=== PATIENT | male | born 1950 | race Caucasian/White ===

== ENCOUNTER 2019-11-10 12:24 | Inpatient (IN) | payer MEDICARE, SELFPAY ==
--- NOTE | ~2019-11-10 | CT_ITS ---
EXAMINATION: CT abdomen pelvis w con DATE: 11/10/2019 14:04 INDICATION: Colovesical fistula. TECHNIQUE: Computed tomography (CT) of the abdomen and pelvis was performed with 100 mL Omnipaque 350 intravenous contrast. Automated exposure control and iterative reconstruction technique were employe d. The dose-length product was 643.00 mGy-cm. COMPARISON: None. FINDINGS: The visualized portions of the lung bases demonstrate mild atelectasis. No pleural effusion . The heart size is normal. There are coronary artery calcifications. No pericardial effusion. The li bing demonstrates focal fat adjacent to the falciform ligament. The gallbladder, spleen, pancreas, and adrenal glands are normal. There are cysts in the kidneys measuring up to 10 mm on the right. The pr ostate is moderately enlarged. There is wall thickening of the sigmoid colon with a fistula to the bl adder. There is gas along the fistula and in the bladder lumen. There are no dilated loops of bowel. The appendix is normal. There is calcified atherosclerosis of the aorta and many of the other arterie s. No significant stenosis of the renal arteries, celiac axis, or superior mesenteric artery. There a re no pathologically enlarged lymph nodes. There is no free intraperitoneal fluid. There is severe marco mbar spondylosis. IMPRESSION: 1. Colovesical fistula, which may be secondary to chronic sigmoid diverticulitis or less likely sigmo id malignancy. Reviewed, dictated and finalized at location A. IMPRESSION: 1. Colovesical fistula, which may be secondary to chronic sigmoid diverticuliti s or less likely sigmoid malignancy.
[2019-11-10 12:46] VITALS: BP 139/96; PULSE 116; RESP 24; TEMP 36.6; O2SAT 100
--- NOTE | 2019-11-10 12:46 | ECG_ITS ---
Measurements Intervals [place] Rate: 113 P: 99 CT: 112 QRS: 16 QRSD: 89 T: 46 QT: 346 QTc: 475 Interpretive Statements SINUS TACHYCARDIA WITH SHORT CT INTERVAL ANTEROSEPTAL INFARCT, AGE INDETERMINATE BORDERLINE ST-T WAVE ABNORMALITY- INFERIOR LEADS BASELINE ARTIFACT- I, II, III, AVR, AVL, AVF ABNORMAL ECG Electronically Signed On 11-10-2019 13:21:17 CDT by Dewayne Tineo D.O.
[2019-11-10 13:22] LABS: Basophils Percent Auto 0.3 % (0.2-1.2); Eosinophils Absolute Auto 0.1 K/mm3 (0-0.3); Eosinophils Percent Auto 0.9 % (0-4.4); Hematocrit 39.8 % (42.0-52.0); Hemoglobin 12.8 g/dL (14.0-18.0); Immature Granulocyte Absolute 0.02 K/mm3 (0.00-0.031); Immature Granulocyte Percent A 0.3 % (0-0.5); Lymphocytes Absolute Auto 2.48 K/mm3 (0.9-3.2); Lymphocytes Percent Auto 33.1 % (18.3-44.2); Mean Corpuscular HGB Conc 32.2 g/dl (32-36); Mean Corpuscular Hemoglobin 25.5 pg (26-34); Mean Corpuscular Volume 79.3 fl (80-100); Mean Platelet Volume 9.2 fl (7.4-10.4); Monocytes Absolute Auto 0.8 K/mm3 (0.1-0.6); Monocytes Percent Auto 10.7 % (2.6-8.5); Neutrophils Absolute Auto 4.1 K/mm3 (1.3-6.7); Neutrophils Percent Auto 54.7 % (45.5-73.1); Platelet Count Result 474 k/mm3 (150-375); Red Blood Count 5.02 M/mm3 (4.6-6.20); Red Cell Distribution Width 15.4 % (11.5-14.5); White Blood Count 7.5 K/mm3 (4.5-10.0)
[2019-11-10] MEDS: SODIUM CHLORIDE 0.9% IV 1,000 ML 999 ML IV CONT (13:22)
--- NOTE | 2019-11-10 13:28 | PC.NURSE ---
Pt to CT scan via stretcher on tele monitor.
[2019-11-10 13:37] LABS: Lactic Acid Reflex 2.1 mmol/L (0.7-2.1)
[2019-11-10 13:38] LABS: Alanine Aminotransferase 20 U/L (4-50); Albumin Level 3.7 g/dL (3.5-5.1); Alkaline Phosphatase 106 U/L (38-126); Aspartate Amino Transferase 31 U/L (17-59); Bilirubin,Total 0.6 mg/dL (0.2-1.3); Blood Urea Nitrogen 13 mg/dL (9-20); Calcium 9.6 mg/dL (8.4-10.2); Carbon Dioxide 23 mmol/L (22-30); Chloride 104 mmol/L (98-107); Estimated CRCL calculation 100 ml/min; Estimated Glomerular Filt Rate > 60; Glucose 107 mg/dL (75-110); Lipase 195 U/L (23-300); Potassium 3.9 mmol/L (3.4-5.0); Sodium 136 mmol/L (137-145)
--- NOTE | 2019-11-10 13:43 | PC.NURSE ---
Pt states he is unable to provide urine sample at this time, fluids infusing, will try after CT scan - urinal at bedside.
[2019-11-10 13:44] VITALS: BP 133/79; PULSE 104; RESP 20; O2SAT 97
[2019-11-10 14:29] VITALS: BP 136/78; PULSE 100; RESP 20; O2SAT 97
--- NOTE | 2019-11-10 14:39 | ED.GENADULT ---
HPI - General Adult General Chief complaint: GI Bleed Stated complaint: urinating stool and blood History of Present Illness HPI narrative: Patient is a 69-year-old male who presents to the ER with concerns of possible colovesicular fistula. Patient was seen by his PCP last week because on 11/06/2019 he began urinating stool. He was placed on ciprofloxacin. Patient has continued to grow more weak and has had some lower abdominal discomfort. He passes air when he urinates as well. Family reports that he has passed some bright red blood as well as dark black stool over the last couple days markedly worse today. Family also reports 25 pound weight loss. No fever but patient is quite fatigued and appears very dry. Has also started having chills. Related Data Home Medications Medication Instructions Recorded Confirmed celecoxib 200 mg capsule 200 mg PO BID 08/29/19 11/06/19 escitalopram oxalate 20 mg tablet 10 mg PO DAILY 08/29/19 11/10/19 ezetimibe 10 mg tablet 10 mg PO DAILY 08/29/19 11/10/19 hydrochlorothiazide 12.5 mg capsule 12.5 mg PO DAILY 08/29/19 11/10/19 Allergies Allergy/AdvReac Type Severity Reaction Status Date / Time atorvastatin Allergy Unknown Unknown Verified 11/10/19 12:54 celecoxib Allergy Unknown Unknown Verified 11/10/19 12:54 duloxetine Allergy Unknown Unknown Verified 11/10/19 12:54 lorazepam Allergy Unknown Anxiety Verified 11/10/19 12:54 rosuvastatin Allergy Unknown Unknown Verified 11/10/19 12:54 Review of Systems Review of Systems: All systems reviewed & are unremarkable except as noted in HPI and below Constitutional: Constitutional: Reports chills, Denies fever(s) and Reports weakness ENT: Denies nasal congestion and Denies sore throat Respiratory: Respiratory: Denies cough, Denies dyspnea and Denies wheezing Gastrointestinal: Gastrointestinal: Reports abdominal pain, Denies nausea and Denies vomiting Comments: Bloody stools Genitourinary: Genitourinary: Reports dysuria and Reports urinary frequency Comments: Stool in urine [facility] Past Medical History Medical History (Updated 11/10/19 @ 15:39 by Jimmy Taylor MD) Atherosclerotic heart disease of [place] coronary artery without angina pectoris Decreased libido Degenerative joint disease (DJD) of lumbar spine Essential (primary) hypertension Major depressive disorder, single episode, unspecified Mixed hyperlipidemia Pneumaturia Vitamin D deficiency, unspecified Surgical History Surgical History (Updated 11/10/19 @ 15:36 by Jimmy Taylor MD) Hx of CABG Family History Family History Mother Hypertension Other Family history of coronary artery disease Family history of malignant neoplasm Social History Social History Smoking status: Smoker, status unknown Second hand tobacco smoke exposure: No Alcohol intake: never Gender identity (if verbalized by the patient): Male Exam Narrative: Exam Narrative: GENERAL: ill-appearing, well-nourished, and in no acute distress. HEAD: Normocephalic, atraumatic. ENT: Dry mucous membranes CHEST: Clear to auscultation. No respiratory distress. HEART: Tachycardic and regular. Normal peripheral pulses. ABDOMEN: Soft,mild suprapubic and LLQ discomfort w/o rebound or guarding, nondistended, normal active bowel sounds. EXTREMITIES: Normal range of motion. No edema. SKIN: Warm, dry, no rash. NEURO: Alert and oriented x3. PSYCH: Normal mood and affect. Course Course Emergency Course: General surgery has been consulted. I did discuss case with Dr. Michael with urology who does not feel urology is required at this time but should patient get worse or urologic needs arise they are happy to consult. Admit to hospitalist service. IV Zosyn ordered for UTI Vital Signs Vital signs: Vital Signs Temperature 97.9 F 11/10/19 12:46 Pulse Rate 116 H 11/10/19 12:46 Respi
--- NOTE | 2019-11-10 15:00 | PM.CNGS ---
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 Pt reports these sx have been going on for the last few days. Pt reports lower abd pain and pressure. Pt also c dysuria and dk urine. Pt denies f/c, but reports he has not felt well. Pt reports some blood in the toliet c BMs. Review of Systems Constitutional: Constitutional: Denies anorexia, Denies chills, Reports fatigue, Denies headache(s), Reports lethargy, Denies malaise, Denies poor appetite, Reports weakness, Denies weight gain and Denies weight loss Eyes: Eyes: Denies loss of vision ENT: Denies dysphagia, Denies headache(s), Denies hearing loss and Denies sore throat Cardiovascular: Cardiovascular: Denies chest pain, Denies syncope, Denies irregular heart rhythm, Denies leg edema, Denies palpitations and Denies dyspnea Respiratory: Respiratory: Denies cough and Denies dyspnea Gastrointestinal: Gastrointestinal: Reports abdominal pain, Denies bloating, Denies change in bowel habits, Denies change in stool character, Denies constipation, Denies dysphagia, Denies heartburn, Denies diarrhea, Denies nausea, Denies vomiting and Denies hematemesis Genitourinary: Genitourinary: Reports dysuria, Reports urinary frequency and Reports urinary urgency Musculoskeletal: Musculoskeletal: Denies myalgias, Denies arthralgias and Denies muscle cramps Integumentary/Breasts: Skin/Breast: Denies non-healing lesions and Denies rash Neurologic: Denies syncope, Denies headache(s) and Denies loss of vision Endocrine: Endocrine: Denies change in body appearance and Denies fatigue Hematologic/Lymphatic: Hematologic/Lymphatic: Denies easy bleeding, Denies easy bruising and Denies lymphadenopathy [facility] Past Medical History Medical History Atherosclerotic heart disease of [place] coronary artery without angina pectoris Decreased libido Degenerative joint disease (DJD) of lumbar spine Essential (primary) hypertension Major depressive disorder, single episode, unspecified Mixed hyperlipidemia Pneumaturia Vitamin D deficiency, unspecified Family History Family History Mother Hypertension Other Family history of coronary artery disease Family history of malignant neoplasm Social History Social History Smoking status: Smoker, status unknown Second hand tobacco smoke exposure: No Alcohol intake: never Gender identity (if verbalized by the patient): Male Meds Home Medications and Allergies Home Medications Medication Instructions Recorded Confirmed Type metoprolol succinate 50 mg 50 mg PO DAILY #90 tablet 07/03/19 11/10/19 Rx tablet,extended release 24 hr celecoxib 200 mg capsule 200 mg PO BID 08/29/19 11/06/19 History escitalopram oxalate 20 mg tablet 10 mg PO DAILY 08/29/19 11/10/19 History ezetimibe 10 mg tablet 10 mg PO DAILY 08/29/19 11/10/19 History hydrochlorothiazide 12.5 mg capsule 12.5 mg PO DAILY 08/29/19 11/10/19 History amitriptyline 25 mg tablet 25 mg PO ONCE #30 tablet 10/10/19 11/10/19 Rx simvastatin 20 mg tablet 20 mg PO DAILY #90 tablet 10/10/19 11/10/19 Rx hydrocodone 10 mg-acetaminophen 1 tablet PO Q6H PRN #90 tablet 10/29/19 04
[2019-11-10 15:05] LABS: Add Urine Microscopic? YES; Amorphous Sediment Urine Few; Appearance Urine Turbid (Clear); Bacteria Urine 1+ /hpf; Bilirubin Urine 1+ (Negative); Blood Urine 3+ (Negative); Color Urine Yellow (Yellow); Glucose Urine UA Negative (Negative); Ketones Urine 1+ mg/dL (Negative); Leukocyte Esterase Ur 2+ LEU/UL (Negative); Mucus Urine Heavy /lpf; Nitrate Urine Negative (Negative); Protein Urine 3+ mg/dL (Negative); RBC Urine 51-75 /hpf (0-2); WBC Clumps Urine Present /HPF; WBC Urine >75 /hpf
[2019-11-10 15:06] LABS: Specific Grav Ur 1.043 (1.001-1.035)
[2019-11-10] MEDS: SODIUM CHLORIDE 0.9% IV 1,000 ML 125 ML IV CONT (15:34)
--- NOTE | 2019-11-10 16:14 | PC.NURSE ---
This patient, Main Alfonso, was admitted to [facility] Surg Room 302-01. Patient/family oriented to hospital policies and general routines including ID bracelet, bed and alarms, visiting hours, pain management, procedures, bathroom and other care routines, personal items, smoking policy, room service/diet, and visiting hours. Valuables list has been completed. Information on how to activate the Rapid Response Team has been discussed. Patient/Family are encouraged to report perceived risks to care and to ask questions if they do not understand what they are told or what they should do.
[2019-11-10 16:15] VITALS: BP 135/72; PULSE 102; RESP 18; TEMP 36.7; O2SAT 99
[2019-11-10 16:21] LABS: Reflex Lactic Acid Yes or No Add Lactic
[2019-11-10 17:02] LABS: Lactic Acid 1.1 mmol/L (0.7-2.1)
[2019-11-10 17:21] VITALS: BMI 30.4
--- NOTE | 2019-11-10 17:26 | PCDIET ---
Nutrition Assessment Complete: Inadequate oral intake R/T reduced appetite and diverticulitis as evidence by wt loss Total intake will meet estimated kcal and protein needs Goal:New goal Pt current nutrition is heart healthy. Nutrition recommendation: change to NPO for bowel rest Last recorded weight is 99 kg (recommend daily weights during bowel rest) Additional Notes: Agree with bowel rest. If pt will be NPO greater than 5 days, recommend starting PPN 4.25/5 with lipids at 60ml/hr day one and advancing to goal of 120ml/hr day two if electrolytes normals to provide 1479kcals and 122g protein daily. Recommend daily wt and ADAT to low fiber when medically appropriate. Following diet, intake, weight, labs every three days
[2019-11-10 21:56] VITALS: BP 141/76; PULSE 96; RESP 18; TEMP 37.2; O2SAT 94
--- NOTE | 2019-11-10 22:24 | PM.IMHP ---
H&P: HPI History of Present Illness Chief complaint: colovesicular fistula/ uti Narrative: Main Alfonso is a 69 year old male who was not aware that he had any diverticulitis or any diverticulosis. Patient stated he has never had a colonoscopy. The patient saw his primary care doctor Dr. Rubin Snyder on 11/06/2019 because he was urinating stool. He was placed on ciprofloxacin. The patient has gotten more fatigued and developed a fever. He had some lower abdominal discomfort. The patient has been passing air whenever he urinates. He also passed some red blood as will start stool the last couple days. He has had a recent 25 lb weight loss. He is also having some chills. Patient had abdominal pelvis CT which was read as colovesical fistula, which may be secondary to chronic sigmoid diverticulitis or least likely sigmoid malignancy. Surgical consult was placed. Urology initially was consulted but stated that theywill consult if it was necessary. The patient has a complicated UTI and is septic therefore I reconsulted Urology. The patient was started on Zosyn. He was given IV fluids in the emergency room. His H&H is noted to be 12.8 and 39.8. Urine had 2+ leukocyte esterase. WBCs greater than 75. Urine rbc's 51-75. 1+ bacteria. Date of service 11/10/2019 Review of Systems Review of Systems: All systems reviewed & are unremarkable except as noted in HPI and below Constitutional: Constitutional: Reports as per HPI and Reports no additional constitutional complaints Eyes: Eyes: Reports as per HPI and Reports no additional eye complaints ENT: Reports system reviewed and no additional complaints, except as documented and Reports Normal hearing present Cardiovascular: Cardiovascular: Reports no additional cardiovascular complaints Respiratory: Respiratory: Reports no additional respiratory complaints and Reports no additional respiratory complaints Gastrointestinal: Gastrointestinal: Reports as per HPI and Reports no additional gastrointestinal complaints Musculoskeletal: Musculoskeletal: Reports no additional musculoskeletal complaints Integumentary/Breasts: Skin/Breast: Reports system reviewed and no additional complaints, except as docu and Reports as per HPI Neurologic: Reports system reviewed and no additional complaints, except as documented, Reports as per HPI and Reports Normal hearing present Psychiatric: Psychiatric: Reports no additional psychiatric complaints and Reports as per HPI Endocrine: Endocrine: Reports no additional endocrine complaints Hematologic/Lymphatic: Hematologic/Lymphatic: Reports no additional hematologic/lymphatic complaints Allergic/Immunologic: Allergic/Immunologic: Reports no additional allergic/immunologic complaints PMFSH Past Medical History Medical History (Updated 11/10/19 @ 22:40 by Mila Ballesteros NP) Atherosclerotic heart disease of [place] coronary artery without angina pectoris Decreased libido Degenerative joint disease (DJD) of lumbar spine Essential (primary) hypertension Major depressive disorder, single episode, unspecified Mixed hyperlipidemia Pneumaturia Vitamin D deficiency, unspecified Surgical History Surgical History (Updated 11/10/19 @ 22:31 by Mila Ballesteros NP) Hx of CABG 6 vessel CABG Family History Family History Mother Hypertension Heart disease Other Family history of coronary artery disease Family history of malignant neoplasm Social History Social History (Updated 11/10/19 @ 22:33 by Mila Ballesteros NP) Social History: The patient lives with his who is a durable power workers compensation defense attorney for healthcare. The patient desires to be a full code. 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 Ale is his 's name. Patient currently smokes at least a pack cigarettes a day. He has smoked since the age of 12. No illicit drugs huan
[2019-11-10] MEDS: AMITRIPTYLINE HCL 25 MG TABLET PO (22:40)
[2019-11-11] MEDS: SODIUM CHLORIDE 0.9% IV 1,000 ML 125 ML IV CONT ×3 (01:40→18:21)
[2019-11-11 06:00] VITALS: BP 136/82; PULSE 109; RESP 18; TEMP 36.2; O2SAT 96
[2019-11-11 06:06] LABS: Basophils Percent Auto 0.5 % (0.2-1.2); Eosinophils Absolute Auto 0.3 K/mm3 (0-0.3); Eosinophils Percent Auto 4.3 % (0-4.4); Hematocrit 36.8 % (42.0-52.0); Immature Granulocyte Absolute 0.02 K/mm3 (0.00-0.031); Immature Granulocyte Percent A 0.3 % (0-0.5); Lymphocytes Absolute Auto 2.53 K/mm3 (0.9-3.2); Lymphocytes Percent Auto 34.4 % (18.3-44.2); Mean Corpuscular HGB Conc 32.6 g/dl (32-36); Mean Corpuscular Hemoglobin 25.6 pg (26-34); Mean Corpuscular Volume 78.5 fl (80-100); Mean Platelet Volume 8.9 fl (7.4-10.4); Monocytes Absolute Auto 0.5 K/mm3 (0.1-0.6); Monocytes Percent Auto 7.2 % (2.6-8.5); Neutrophils Absolute Auto 3.9 K/mm3 (1.3-6.7); Neutrophils Percent Auto 53.3 % (45.5-73.1); Platelet Count Result 446 k/mm3 (150-375); Red Blood Count 4.69 M/mm3 (4.6-6.20); Red Cell Distribution Width 15.5 % (11.5-14.5); White Blood Count 7.4 K/mm3 (4.5-10.0)
[2019-11-11 06:20] LABS: Alanine Aminotransferase 17 U/L (4-50); Albumin Level 3.4 g/dL (3.5-5.1); Alkaline Phosphatase 87 U/L (38-126); Aspartate Amino Transferase 31 U/L (17-59); Bilirubin,Total 0.6 mg/dL (0.2-1.3); Blood Urea Nitrogen 12 mg/dL (9-20); Calcium 9.1 mg/dL (8.4-10.2); Carbon Dioxide 22 mmol/L (22-30); Chloride 106 mmol/L (98-107); Estimated CRCL calculation 100 ml/min; Estimated Glomerular Filt Rate > 60; Glucose 109 mg/dL (75-110); Magnesium 1.7 mg/dL (1.6-2.3); Potassium 3.5 mmol/L (3.4-5.0); Sodium 135 mmol/L (137-145)
[2019-11-11] MEDS: CHOLECALCIFEROL 1,000 UNIT TABLET 5000 UNITS PO (09:02)
[2019-11-11] MEDS: ESCITALOPRAM OXALATE 10 MG TABLET PO (09:03)
[2019-11-11] MEDS: EZETIMIBE 10 MG TABLET PO (09:03)
[2019-11-11 09:04] VITALS: PULSE 86
[2019-11-11] MEDS: METOPROLOL SUCCINATE EXT REL 50 MG TABCR PO (09:04)
[2019-11-11] MEDS: SIMVASTATIN 20 MG TABLET PO (09:06)
--- NOTE | 2019-11-11 09:44 | PM.PNGS ---
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 Pt c/o suprapubic pain, pressure geoff c urination. Review of Systems Constitutional: Constitutional: Denies chills and Reports fatigue Cardiovascular: Cardiovascular: Denies chest pain and Denies palpitations Respiratory: Respiratory: Denies dyspnea Gastrointestinal: Gastrointestinal: Reports abdominal pain, Reports bloating, Denies nausea and Denies vomiting Genitourinary: Genitourinary: Reports dysuria Exam Const: General: in distress mild Resp: Auscultation: clear to auscultation bilaterally Cardio: Rate: regular rate Rhythm: regular rhythm GI: Other: S, sl dist, mild TTP suprapubic Objective Data Vital Signs Vital Signs: Vital Signs - 24 hr 11/10/19 12:46 11/10/19 13:44 11/10/19 14:29 Temperature 36.6 C Pulse Rate 116 H 104 H 100 Respiratory Rate 24 H 20 20 Blood Pressure 139/96 H 133/79 136/78 Pulse Oximetry 100 97 97 11/10/19 16:15 11/10/19 21:56 11/11/19 06:00 Temperature 36.7 C 37.2 C 36.2 C L Pulse Rate 102 H 96 109 H Respiratory Rate 18 18 18 Blood Pressure 135/72 141/76 H 136/82 Pulse Oximetry 99 94 96 11/11/19 09:04 Temperature Pulse Rate 86 Respiratory Rate Blood Pressure Pulse Oximetry Intake/Output Intake/Output: Intake & Output 11/08/19 11/09/19 11/10/19 11/11/19 23:59 23:59 23:59 23:59 Intake Total 1540 1420 Output Total 100 Balance 1440 1420 Meds/Results Medications: Active Medications Generic Name Dose Route Start Last Admin Trade Name Freq PRN Reason Stop Dose Admin Hydrocodone Bitart/Acetaminophen 1 tab 11/10/19 21:50 11/11/19 09:11 [place] 10-325 Mg PO 1 tab Q6H PRN Administration Pain Rated 4-6 Ezetimibe 10 mg 11/11/19 09:00 11/11/19 09:03 Zetia PO 10 mg DAILY VAMSI Administration Escitalopram Oxalate 10 mg 11/11/19 09:00 11/11/19 09:03 Lexapro PO 10 mg DAILY VAMSI Administration Acetaminophen 1,000 mg in 100 mls @ 400 mls/hr 11/10/19 15:18 Ofirmev 1,000 Mg Ivpb IVPB 11/11/19 15:19 Q6H PRN Mild Pain (1-3) or Fever Sodium Chloride 1,000 mls @ 125 mls/hr 11/10/19 15:20 11/11/19 01:40 Normal Saline Iv IV CONT 125 mls/hr .Q8H VAMSI Administration Piperacillin/Tazobactam/Dextrose 3.375 gm in 50 mls @ 100 mls/hr 11/10/19 22:00 11/11/19 09:19 Zosyn 3.375 Gm/D5w 50ml Pm IVPB 100 mls/hr Q6H VAMSI Administration Metoprolol Succinate 50 mg 11/11/19 09:00 11/11/19 09:04 Toprol Xl PO 50 mg DAILY VAMSI Administration Morphine Sulfate 4 mg 11/10/19 15:18 Morphine Sulfate Inj IV PUSH Q2H PRN Pain Rated 7-10 Ondansetron HCl 4 mg 11/10/19 15:18 Zofran Inj IV PUSH Q4H PRN Nausea Polyethylene Glycol 17 gm 11/10/19 21:50 Miralax PO DAILY PRN Constipation Simvastatin 20 mg 11/11/19 09:00 11/11/19 09:06 Zocor PO 20 mg DAILY VAMSI Administration Vitamin D 5,000 unit 11/11/19 09:00 11/11/19 09:02 Vitamin D PO 5,000 unit DAILY VAMSI Administration Radiology Results: ITS Impressions Abdomen/Pelvis CT 11/10/19 14:21 IMPRESSION: 1. Colovesical fistula, which may be secondary to chronic sigmoid diverticulitis or less likely sigmoid malignancy. Labs Labs: Laboratory Results - last 24 hr 11/10/19 11/10/19 11/10/19 13:17 13:17 13:17 WBC 7.5 RBC 5.02 Hgb 12.8 L Hct 39.8 L MCV 79.3 L MCH 25.5 L MCHC 32.2 RDW 15.4 H Plt Count
--- NOTE | 2019-11-11 10:04 | PC.NURSE ---
[address] ESCALONA'S OFFICE OF CONSULT. Zunilda DE LA CRUZ RN
--- NOTE | 2019-11-11 10:21 | PM.IMPN ---
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 Patient previously experiencing pneumaturia which he reports has resolved. Endorsing diarrhea. Surgery has been consulted and recommendations are greatly appreciated GI has been consulted by surgery and recommendations are also appreciated Continue IV Zosyn Continue IV Fluids Blood and urine cultures pending (2) Diverticulitis of large intestine with complication: Code(s): K57.32 - Diverticulitis of large intestine without perforation or abscess without bleeding Status: Acute Assessment and Plan: Patient endorsing liquid brown stools every 1 to 1.5 hours. Denies melena or hematochezia. Denies abdominal pain. Afebrile and WBC 7.4. GI consult has been placed and recommendations are greatly appreciated Continue to monitor vitals and labs Continue Zosyn and IV fluids Blood cultures pending (3) Acute UTI: Code(s): N39.0 - Urinary tract infection, site not specified Status: Acute Assessment and Plan: Patient recently started on Cipro for hematuria as an outpatient on 11/06/19. Currently denies gross hematuria or pneumaturia. UA suspicious for UTI. Afebrile and WBC 7.4. No CVA tenderness. Urology has been consulted and recommendations are greatly appreciated. Continue Zosyn Await results of blood culture and urine culture. (4) Ear fullness: Code(s): H93.8X9 - Other specified disorders of ear, unspecified ear Status: Acute Assessment and Plan: Patient complains of fullness in ears and decreased hearing. No cerumen impaction noted on exam. This was addressed at recent visit with PCP and encouraged to begin OTC allergy meds which he has not done. Will begin claritin Will begin nasal saline spray (5) Weight loss, non-intentional: Code(s): R63.4 - Abnormal weight loss Status: Acute Assessment and Plan: Patient reports recent unintentional 25 pound weight loss, general malaise, and poor appetite. GI has been consulted and patient will benefit from GI workup to evaluate for potential malignancy given fistula in conjunction with weight loss. Will continue to monitor (6) Essential (primary) hypertension: Code(s): I10 - Essential (primary) hypertension Status: Acute Assessment and Plan: Blood pressure evaluated today and stable at 136/82. Continue metoprolol and HCTZ. (7) Major depressive disorder, single episode, unspecified: Code(s): F32.9 - Major depressive disorder, single episode, unspecified Status: Acute Assessment and Plan: Stable. Continue with Lexapro Subjective Date/time seen: 11/11/19 10:21 Interval history: Date of service: 11/11/2019 Mr. Alfonso is seen today and reports he is feeling okay. He tells me his most bothersome symptom at this time is a sensation of ear fullness which has been ongoing for some time. He tells me he is urinating without difficulty a clear, yellow urine. He denies hematuria, pneumaturia, or fecaluria. He is having a brown liquid stool approximately every 1 to 1.5 hours. He denies abdominal pain, distention, or bloating. He denies fever, chills, nausea, or vomiting. He is eating clear liquids and reports he is tolerating well. He denies headache, dizziness, lightheadedness, bleeding, bruising. He denies chest pain, shortness of breath, cough, or orthopnea. He does tell me he has lost approximately 25 pounds in 1-2 months and has been feeling run down and unwell for months and endorsed overall poor appetite. He tells me he is having a hard time understanding what is going on and he is anxious to get back home. We had a long discussion and I dana a picture for him which seem
--- NOTE | 2019-11-11 11:44 | WPDGICN ---
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 He is already on iv zosyn but also need to proceed with colonoscopy to assess, will be gentle (another differential is diverticulitis)- no perforation, no abscess (2) Diverticulitis of large intestine with complication: Code(s): K57.32 - Diverticulitis of large intestine without perforation or abscess without bleeding Status: Acute Assessment and Plan: on antibiotics, surgery on board (3) Pneumaturia: Code(s): R39.89 - Other symptoms and signs involving the genitourinary system Status: Acute Assessment and Plan: consult urology (4) Weight loss, non-intentional: Code(s): R63.4 - Abnormal weight loss Status: Acute Assessment and Plan: colonoscopy to rule out malignancy (5) Essential (primary) hypertension: Code(s): I10 - Essential (primary) hypertension Status: Acute GI Consult Note Consult date/time: 11/11/19 11:44 Reason for consult: colovesiculal fistula HPI: Main Alfonso is a 69 year old male here with new onset of hematuria last , he went to see his doctor and given ciprofloxacin and refer to urology. Also noted discomfort in lower abdomen with more fatigue but denies fever. Then he has been passing air whenever he urinates and day of admission also blood in stools. Noted also 25 lb weight loss last 6 weeks which was unintentional. He finally had abdominal pelvis CT which showed colovesical fistula, which may be secondary to chronic sigmoid diverticulitis or likely sigmoid malignancy. He never had a colonoscopy, no family history of colon cancer. He is evaluated by surgery, on iv antibiotics Review of Systems Constitutional: Constitutional: Reports fatigue Eyes: Eyes: Denies blurry vision ENT: Reports Normal hearing present Cardiovascular: Cardiovascular: Denies chest pain Respiratory: Respiratory: Denies dyspnea on exertion Gastrointestinal: Gastrointestinal: Reports abdominal pain Genitourinary: Genitourinary: Reports hematuria, Reports urinary hesitancy and Reports urinary urgency Musculoskeletal: Musculoskeletal: Denies neck pain Integumentary/Breasts: Skin/Breast: Denies pruritus Neurologic: Denies confusion Psychiatric: Psychiatric: Denies depression Hematologic/Lymphatic: Hematologic/Lymphatic: Denies lymphadenopathy Allergic/Immunologic: Allergic/Immunologic: Denies urticaria PMFSH Past Medical History Medical History (Updated 11/11/19 @ 10:44 by Concepción Hernandez PA-C) Atherosclerotic heart disease of [place] coronary artery without angina pectoris Decreased libido Degenerative joint disease (DJD) of lumbar spine Essential (primary) hypertension Major depressive disorder, single episode, unspecified Mixed hyperlipidemia Pneumaturia Vitamin D deficiency, unspecified Surgical History Surgical History (Updated 11/10/19 @ 22:31 by Mila Ballesteros NP) Hx of CABG 6 vessel CABG Family History Family History Mother Hypertension Heart disease Other Family history of coronary artery disease Family history of malignant neoplasm Social History Social History (Updated 11/10/19 @ 22:33 by Mila Ballesteros NP) Social History: The patient lives with his who is a durable power admissions evaluator for healthcare. The patient desires to be a full code. 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 Ale is his 's name. Patient currently smokes at least a pack cigarettes a day. He has smoked since the age of 12. No illicit drugs marijuana nor alcohol Smoking packs per day: 1 Smoking cigarettes per day: 20.0 Years smoked: 57 [place]
[2019-11-11] MEDS: hydroCHLOROthiazide 12.5 MG CAPSULE PO (12:44)
[2019-11-11] MEDS: SALINE 0.65% NAS SOLN 44 ML BTL 1 SPRAY NASAL (12:45)
[2019-11-11] MEDS: LORATADINE 5 MG TABLET PO (12:45)
--- NOTE | 2019-11-11 13:36 | WPDURCON ---
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 UTI can be treated based on culture sensitivities. Main will require a cystoscopy and this can be performed as an outpatient prior to his surgical intervention. No other intervention needed from our standpoint. We can be made available for either ureteral stent placements or for operative intervention if required. Urology Consult Note HPI Date Seen: 11/11/19 Time Seen: 13:36 Requesting Physician: Concepción Hernandez PA-C Primary Care Provider: Rubin Pan MD Consult Narrative Reason for consult: Colovesical fistula Narrative: Main Alfonso is a 69 year old male who was admitted with fever as well as symptoms of a colovesical fistula with hematuria as well as pneumaturia which developed this past . He denied any prior voiding symptoms. He did undergo a CT scan which revealed was felt to be a colovesical fistula. There was no evidence of perforation. Both general surgery as well as gastroenterology has seen the patient. Main tells me that he is due to have a colonoscopy tomorrow. CT scan did not reveal any significant urologic findings other than the fistula. He does have what appears to be some benign renal cysts. Review of Systems Review of Systems: All systems reviewed & are unremarkable except as noted in HPI and below PMFSH Past Medical History Medical History Atherosclerotic heart disease of [place] coronary artery without angina pectoris Decreased libido Degenerative joint disease (DJD) of lumbar spine Essential (primary) hypertension Major depressive disorder, single episode, unspecified Mixed hyperlipidemia Pneumaturia Vitamin D deficiency, unspecified Surgical History Surgical History Hx of CABG 6 vessel CABG Family History Family History Mother Hypertension Heart disease Other Family history of coronary artery disease Family history of malignant neoplasm Social History Social History Social History: The patient lives with his who is a durable power criminal defense attorney for healthcare. The patient desires to be a full code. 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 Ale is his 's name. Patient currently smokes at least a pack cigarettes a day. He has smoked since the age of 12. No illicit drugs marijuana nor alcohol Smoking packs per day: 1 Smoking cigarettes per day: 20.0 Years smoked: 57 Smoking pack-years: 57.00 Smoking status: Current every day smoker Second hand tobacco smoke exposure: No Alcohol intake: never Substance use: never Substance use type: does not use Living arrangements: with family Gender identity (if verbalized by the patient): Male Spiritual care concerns: No Agree to blood products: Yes Meds Home Medications and Allergies Home Medications Medication Instructions Recorded Confirmed Type metoprolol succinate 50 mg 50 mg PO DAILY #90 tablet 07/03/19 11/10/19 Rx tablet,extended release 24 hr escitalopram oxalate 20 mg tablet 10 mg PO DAILY 08/29/19 11/10/19 History ezetimibe 10 mg tablet 10 mg PO DAILY 08/29/19 11/10/19 History hydrochlorothiazide 12.5 mg capsule 12.5 mg PO DAILY 08/29/19 11/10/19 History amitriptyline 25 mg tablet 25 mg PO ONCE #30 tablet 10/10/19 11/10/19 Rx simvastatin 20 mg tablet 20 mg PO DAILY #90 tablet 10/10/19 11/10/19 Rx hydrocodone 10 mg-acetaminophen 1 tablet PO Q6H PRN #90 tablet 10/29/19 11/10/19 Rx 325 mg tablet ciproflox
[2019-11-11 14:00] VITALS: BP 139/78; PULSE 88; RESP 18; TEMP 36.7; O2SAT 98
[2019-11-11] MEDS: PEG (High)/E-LYTE SOLN 4,000 ML BTL 4000 ML PO (16:21)
--- NOTE | 2019-11-11 17:20 | WPDANESEPP ---
Anes - Eval Pre Procedure Procedure: Colonoscopy Operation Date: 11/12/19 10:00 Proposed Procedures p Colonoscopy - Berto Black MD Date/Time: 11/11/19 17:20 Surgeon: Lavelle Pre Op Diagnosis: colovesicular fistula/ uti Patient Data Age: 69 Gender: M Height: 5 ft 11 in Weight: 99 kg Last Vital Signs Temp 98.1 F 11/11/19 14:00 Pulse 88 11/11/19 14:00 Resp 18 11/11/19 14:00 BP 139/78 11/11/19 14:00 Pulse Ox 98 11/11/19 14:00 Allergies Allergy/AdvReac Type Severity Reaction Status Date / Time atorvastatin Allergy Unknown Unknown Verified 11/10/19 12:54 celecoxib Allergy Unknown Unknown Verified 11/10/19 12:54 duloxetine Allergy Unknown Unknown Verified 11/10/19 12:54 lorazepam Allergy Unknown Anxiety Verified 11/10/19 12:54 rosuvastatin Allergy Unknown Unknown Verified 11/10/19 12:54 Home Medications Medication Instructions Recorded Confirmed Type metoprolol succinate 50 mg 50 mg PO DAILY #90 tablet 07/03/19 11/10/19 Rx tablet,extended release 24 hr escitalopram oxalate 20 mg tablet 10 mg PO DAILY 08/29/19 11/10/19 History ezetimibe 10 mg tablet 10 mg PO DAILY 08/29/19 11/10/19 History hydrochlorothiazide 12.5 mg capsule 12.5 mg PO DAILY 08/29/19 11/10/19 History amitriptyline 25 mg tablet 25 mg PO ONCE #30 tablet 10/10/19 11/10/19 Rx simvastatin 20 mg tablet 20 mg PO DAILY #90 tablet 10/10/19 11/10/19 Rx hydrocodone 10 mg-acetaminophen 1 tablet PO Q6H PRN #90 tablet 10/29/19 11/10/19 Rx 325 mg tablet ciprofloxacin HCl 500 mg tablet 500 mg PO Q12H 10 Days #20 tablet 11/06/19 11/10/19 Rx aspirin 325 mg PO DAILY 11/10/19 11/10/19 History cholecalciferol (vitamin D3) 125 mcg PO DAILY 11/10/19 11/10/19 History [Vitamin D3] polyethylene glycol 3350 [Miralax] 17 g PO DAILY PRN 11/10/19 11/10/19 History Laboratory Tests 11/11/19 11/11/19 05:15 05:15 WBC 7.4 K/mm3 K/mm3 (4.5-10.0) RBC 4.69 M/mm3 M/mm3 (4.6-6.20) Hgb 12.0 g/dL L g/dL (14.0-18.0) Hct 36.8 % L % (42.0-52.0) MCV 78.5 fl L fl (80-100) MCH 25.6 pg L pg (26-34) MCHC 32.6 g/dl g/dl (32-36) RDW 15.5 % H % (11.5-14.5) Plt Count 446 k/mm3 H k/mm3 (150-375) MPV 8.9 fl fl (7.4-10.4) Immature Gran % (Auto) 0.3 % % (0-0.5) Neut % (Auto) 53.3 % % (45.5-73.1) Lymph % (Auto) 34.4 % % (18.3-44.2) [place] % (Auto) 7.2 % % (2.6-8.5) Eos % (Auto) 4.3 % % (0-4.4) Baso % (Auto) 0.5 % % (0.2-1.2) Lymph # (Auto) 2.53 K/mm3 K/mm3 (0.9-3.2) [place] # (Auto) 0.5 K/mm3 K/mm3 (0.1-0.6) Eos # (Auto) 0.3 K/mm3 K/mm3 (0-0.3) Baso # (Auto) 0.0 K/mm3 K/mm3 (0.0-0.1) Abs Immat Gran (auto) 0.02 K/mm3 K/mm3 (0.00-0.031) Absolute Neuts (auto) 3.9 K/mm3 K/mm3 (1.3-6.7) Absolute Nucleated RBC 0.0 K/mm3 K/mm3 (0.0-0.012) Nucleated RBC % 0.0 % % (0.0-0.2) Sodium 135 mmol/L L mmol/L (137-145) Potassium 3.5 mmol/L mmol/L (3.4-5.0) Chloride 106 mmol/L mmol/L (98-107) Carbon Dioxide 22 mmol/L mmol/L (22-30) BUN 12 mg/dL mg/dL (9-20) Creatinine 0.70 mg/dL mg/dL (0.7-1.3) Estim Creat Clear Calc 100 ml/min ml/min Estimated GFR > 60 (59 - ) Glucose 109 mg/dL mg/dL (75-110) Calcium 9.1 mg/dL mg/dL (8.4-10.2) Magnesium 1.7 mg/dL mg/dL (1.6-2.3) Total Bilirubin 0.6 mg/dL mg/dL (0.2-1.3) AST 31 U/L U/L (17-59) ALT 17 U/L U/L (4-50) Alkaline Phosphatase 87 U/L U/L (38-126) Total Protein 7.0 g/dL g/dL (6.3-8.2) Albumin 3.4 g/dL L g/dL (3.5-5.1) Patient hx anesthesia problems: none Family hx anesthesia problems: none [facility] Past Medical History Medical History Atherosclerotic heart disease of [place] coronary artery without angina pectoris Decre
[2019-11-11] MEDS: BISACODYL 5 MG TABLET EC 20 MG PO (17:50)
[2019-11-11] MEDS: ONDANSETRON INJ 4 MG/2 ML VIAL IV PUSH (18:58)
[2019-11-11 22:00] VITALS: BP 156/80; PULSE 96; RESP 16; TEMP 36.6; O2SAT 93
[2019-11-12] VITALS (8 sets, daily range): BP systolic 123–139; BP diastolic 32–79; PULSE 68–100; RESP 16–26; TEMP 36.4–36.9; O2SAT 95–98
[2019-11-12] MEDS: ONDANSETRON INJ 4 MG/2 ML VIAL IV PUSH (00:10)
--- NOTE | 2019-11-12 00:50 | PC.NURSE ---
Patient's was contacted at 2226 because patient was refusing to drink the rest of the bowel prep. I had already talked with the patient about the importance of finishing the bowel prep and that in order for the physician to perform the procedure his stool needed to be clear but the patient kept refusing. Patient's suggested that if the bowel prep is put into a cup with ice then he may drink it. I went ahead and did what the had asked and the patient stated that he did sip some.
[2019-11-12] MEDS: SODIUM CHLORIDE 0.9% IV 1,000 ML 125 ML IV CONT ×2 (04:01→18:07)
[2019-11-12] MEDS: MAGNESIUM CITRATE 300 ML BTL PO (04:04)
[2019-11-12 06:07] LABS: Basophils Percent Auto 0.5 % (0.2-1.2); Eosinophils Absolute Auto 0.3 K/mm3 (0-0.3); Eosinophils Percent Auto 6.1 % (0-4.4); Hematocrit 34.5 % (42.0-52.0); Hemoglobin 10.9 g/dL (14.0-18.0); Immature Granulocyte Absolute 0.01 K/mm3 (0.00-0.031); Immature Granulocyte Percent A 0.2 % (0-0.5); Lymphocytes Percent Auto 37.6 % (18.3-44.2); Mean Corpuscular HGB Conc 31.6 g/dl (32-36); Mean Corpuscular Hemoglobin 25.6 pg (26-34); Mean Corpuscular Volume 81.2 fl (80-100); Monocytes Absolute Auto 0.5 K/mm3 (0.1-0.6); Monocytes Percent Auto 8.4 % (2.6-8.5); Neutrophils Absolute Auto 2.6 K/mm3 (1.3-6.7); Neutrophils Percent Auto 47.2 % (45.5-73.1); Platelet Count Result 415 k/mm3 (150-375); Red Blood Count 4.25 M/mm3 (4.6-6.20); Red Cell Distribution Width 15.6 % (11.5-14.5); White Blood Count 5.6 K/mm3 (4.5-10.0)
[2019-11-12 06:16] LABS: Alanine Aminotransferase 19 U/L (4-50); Albumin Level 3.3 g/dL (3.5-5.1); Alkaline Phosphatase 73 U/L (38-126); Aspartate Amino Transferase 33 U/L (17-59); Bilirubin,Total 0.4 mg/dL (0.2-1.3); Blood Urea Nitrogen 8 mg/dL (9-20); Calcium 8.7 mg/dL (8.4-10.2); Carbon Dioxide 22 mmol/L (22-30); Chloride 108 mmol/L (98-107); Estimated CRCL calculation 100 ml/min; Estimated Glomerular Filt Rate > 60; Glucose 97 mg/dL (75-110); Magnesium 1.8 mg/dL (1.6-2.3); Potassium 3.5 mmol/L (3.4-5.0); Sodium 137 mmol/L (137-145)
[2019-11-12] MEDS: METOPROLOL SUCCINATE EXT REL 50 MG TABCR PO (08:05)
--- NOTE | 2019-11-12 08:50 | PM.IMPN ---
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 Patient previously experiencing pneumaturia which he reports has resolved. Colonoscopy today. Await results General surgery and GI are following the patient and recommendations are greatly appreciated Continue IV Zosyn Continue IV Fluids at decreased rate of 95 ml/hr (2) Diverticulitis of large intestine with complication: Code(s): K57.32 - Diverticulitis of large intestine without perforation or abscess without bleeding Status: Acute Assessment and Plan: No perforation or abscess noted on CT. Patient endorsing liquid brown stools every 1 to 1.5 hours on 11/10. Denies melena or hematochezia. Denies abdominal pain. Afebrile and WBC 5.6. Blood cultures reveal NGTD. Colonoscopy today. Await results Continue NPO diet GI is following patient and recommendations are greatly appreciated Continue to monitor vitals and labs Continue Zosyn and IV fluids Await final blood cultures (3) Acute UTI: Code(s): N39.0 - Urinary tract infection, site not specified Status: Acute Assessment and Plan: Patient recently started on Cipro for hematuria as an outpatient on 11/06/19. Patient is afebrile and WBC 7.4. No CVA tenderness. Urine culture reveals no growth. He denies dysuria. Urology has been consulted and recommend outpatient cystoscopy. (4) Ear fullness: Code(s): H93.8X9 - Other specified disorders of ear, unspecified ear Status: Acute Assessment and Plan: Patient complains of fullness in ears and decreased hearing. TMs pearly ramirez on exam with minimal cerumen in ear canals. This was addressed at recent visit with PCP and encouraged to begin OTC allergy meds which he had not begun. Reports symptomatic improvement today. Continue claritin Continue nasal saline spray (5) Weight loss, non-intentional: Code(s): R63.4 - Abnormal weight loss Status: Acute Assessment and Plan: Patient reports recent unintentional 25 pound weight loss, general malaise, and poor appetite. GI has been consulted and patient will undergo colonoscopy today to assess for malignant etiology. Will continue to monitor Continue NPO diet Will need to begin dietary supplements once diet is resumed (6) Essential (primary) hypertension: Code(s): I10 - Essential (primary) hypertension Status: Acute Assessment and Plan: Blood pressure evaluated today and stable at 138/73. Continue metoprolol and HCTZ. (7) Major depressive disorder, single episode, unspecified: Code(s): F32.9 - Major depressive disorder, single episode, unspecified Status: Acute Assessment and Plan: Stable. He notes he is nervous for colonoscopy results but denies feeling down, depressed, or hopeless. Continue with Lexapro Continue to monitor Subjective Date/time seen: 11/12/19 08:50 Interval history: Date of service: 11/12/19 Mr. Alfonso reports he is feeling about the same today. He will be undergoing colonoscopy today. He endorsed frequent liquid stools due to bowel prep. He denies urinary symptoms and is urinating clear to yellow urine without pneumaturia or gross hematuria. His ear pressure has improved. He is NPO for colonoscopy but continues to endorse decreased appetite and reports he didn't eat yesterday. He tells me he is mildly nervous regarding colonoscopy and subsequent results but he has been in contact with his family which has been reassuring to him. He had a brief episode of nausea last night when drinking bowel prep, but denies vomiting, fever, chills, abdominal pain or cramping. He denies shortness of breath, chest pain, cough, orthopnea, dizziness, lighth
[2019-11-12] MEDS: LACTATED RINGERS 1,000 ML 150 ML IV CONT (09:21)
--- NOTE | 2019-11-12 09:30 | WPDANESEPPF ---
Anes - Initial Pre Proc Eval Procedure: Operation Date: 11/12/19 10:00 Proposed Procedures p Colonoscopy - Berto Black MD Date/Time: 11/12/19 09:30 Surgeon: Concepción Hernandez PA-C Pre Op Diagnosis: colovesicular fistula/ uti Patient Data Age: 69 Gender: M Height: 5 ft 11 in Weight: 99 kg Last Vital Signs Temp 36.9 C 11/12/19 09:15 Pulse 85 11/12/19 09:15 Resp 18 11/12/19 09:15 BP 131/79 11/12/19 09:15 Pulse Ox 95 11/12/19 09:15 Allergies Allergy/AdvReac Type Severity Reaction Status Date / Time atorvastatin Allergy Unknown Unknown Verified 11/12/19 09:15 celecoxib Allergy Unknown Unknown Verified 11/12/19 09:15 duloxetine Allergy Unknown Unknown Verified 11/12/19 09:15 lorazepam Allergy Unknown Anxiety Verified 11/12/19 09:15 rosuvastatin Allergy Unknown Unknown Verified 11/12/19 09:15 Home Medications Medication Instructions Recorded Confirmed Type metoprolol succinate 50 mg 50 mg PO DAILY #90 tablet 07/03/19 11/10/19 Rx tablet,extended release 24 hr escitalopram oxalate 20 mg tablet 10 mg PO DAILY 08/29/19 11/10/19 History ezetimibe 10 mg tablet 10 mg PO DAILY 08/29/19 11/10/19 History hydrochlorothiazide 12.5 mg capsule 12.5 mg PO DAILY 08/29/19 11/10/19 History amitriptyline 25 mg tablet 25 mg PO ONCE #30 tablet 10/10/19 11/10/19 Rx simvastatin 20 mg tablet 20 mg PO DAILY #90 tablet 10/10/19 11/10/19 Rx hydrocodone 10 mg-acetaminophen 1 tablet PO Q6H PRN #90 tablet 10/29/19 11/10/19 Rx 325 mg tablet ciprofloxacin HCl 500 mg tablet 500 mg PO Q12H 10 Days #20 tablet 11/06/19 11/10/19 Rx aspirin 325 mg PO DAILY 11/10/19 11/10/19 History cholecalciferol (vitamin D3) 125 mcg PO DAILY 11/10/19 11/10/19 History [Vitamin D3] polyethylene glycol 3350 [Miralax] 17 g PO DAILY PRN 11/10/19 11/10/19 History Laboratory Tests 11/12/19 11/12/19 05:14 05:14 WBC 5.6 K/mm3 K/mm3 (4.5-10.0) RBC 4.25 M/mm3 L M/mm3 (4.6-6.20) Hgb 10.9 g/dL L g/dL (14.0-18.0) Hct 34.5 % L % (42.0-52.0) MCV 81.2 fl fl (80-100) MCH 25.6 pg L pg (26-34) MCHC 31.6 g/dl L g/dl (32-36) RDW 15.6 % H % (11.5-14.5) Plt Count 415 k/mm3 H k/mm3 (150-375) MPV 9.0 fl fl (7.4-10.4) Immature Gran % (Auto) 0.2 % % (0-0.5) Neut % (Auto) 47.2 % % (45.5-73.1) Lymph % (Auto) 37.6 % % (18.3-44.2) [place] % (Auto) 8.4 % % (2.6-8.5) Eos % (Auto) 6.1 % H % (0-4.4) Baso % (Auto) 0.5 % % (0.2-1.2) Lymph # (Auto) 2.10 K/mm3 K/mm3 (0.9-3.2) [place] # (Auto) 0.5 K/mm3 K/mm3 (0.1-0.6) Eos # (Auto) 0.3 K/mm3 K/mm3 (0-0.3) Baso # (Auto) 0.0 K/mm3 K/mm3 (0.0-0.1) Abs Immat Gran (auto) 0.01 K/mm3 K/mm3 (0.00-0.031) Absolute Neuts (auto) 2.6 K/mm3 K/mm3 (1.3-6.7) Absolute Nucleated RBC 0.0 K/mm3 K/mm3 (0.0-0.012) Nucleated RBC % 0.0 % % (0.0-0.2) Sodium 137 mmol/L mmol/L (137-145) Potassium 3.5 mmol/L mmol/L (3.4-5.0) Chloride 108 mmol/L H mmol/L (98-107) Carbon Dioxide 22 mmol/L mmol/L (22-30) BUN 8 mg/dL L mg/dL (9-20) Creatinine 0.70 mg/dL mg/dL (0.7-1.3) Estim Creat Clear Calc 100 ml/min ml/min Estimated GFR > 60 (59 - ) Glucose 97 mg/dL mg/dL (75-110) Calcium 8.7 mg/dL mg/dL (8.4-10.2) Magnesium 1.8 mg/dL mg/dL (1.6-2.3) Total Bilirubin 0.4 mg/dL mg/dL (0.2-1.3) AST 33 U/L U/L (17-59) ALT 19 U/L U/L (4-50) Alkaline Phosphatase 73 U/L U/L (38-126) Total Protein 7.0 g/dL g/dL (6.3-8.2) Albumin 3.3 g/dL L g/dL (3.5-5.1) Patient hx anesthesia problems: none Family hx anesthesia problems: none PMFSH Past Medical History Medical History Atherosclerotic heart disease of [place] coronary artery without angina
--- NOTE | 2019-11-12 11:10 | PCNFU ---
Nutrition Follow-Up Complete: Inadequate oral intake R/T reduced appetite and diverticulitis as evidence by wt loss Goal: Total intake will meet estimated kcal and protein needs Progressing towards goal, We will continue current goal. Pt current nutrition is NPO. Nutrition recommendation: Advance as tolerated. Last recorded weight is 99 kg. Bowel Motility:7 BM on11/10 reported. Labs Reviewed:BUN 8,AlB 3.3 Meds Noted:Vit D, Zofran, Normal Saline, LR 1000 ml at 150 ml/hr Additional Notes: Spoke with nursing today over telephone due to COVID 19 precautions. Patient currently NPO for colonoscopy today, multiple liquid stools reported. Patient had been on a heart healthy diet with intake reported from 25-100% of meals. Weight loss reported by of 25 ibs in the past 1-2 months. Recommend a diet supplement when diet advances. Monitoring: Diet, intake, weight, labs every three days
--- NOTE | 2019-11-12 11:50 | PM.PNGS ---
Progress Note: A&P Assessment and Plan (1) Diverticulitis of large intestine with complication: Code(s): K57.32 - Diverticulitis of large intestine without perforation or abscess without bleeding Status: Acute Assessment and Plan: cont IV abx, await results of scope today (2) Colovesical fistula: Code(s): N32.1 - Vesicointestinal fistula Status: Acute Assessment and Plan: cont IV abx, appreciate urology input Subjective Subjective Date/Time Seen: 11/12/19 11:50 pt seen while getting colonoscopy, cont to c/o suprapubic tenderness although improved Review of Systems Constitutional: Constitutional: Reports fatigue and Reports weakness Cardiovascular: Cardiovascular: Denies chest pain and Denies palpitations Respiratory: Respiratory: Denies dyspnea Gastrointestinal: Gastrointestinal: Reports abdominal pain, Reports bloating, Denies nausea and Denies vomiting Genitourinary: Genitourinary: Reports dysuria Exam Const: General: no acute distress Resp: Auscultation: clear to auscultation bilaterally Cardio: Rate: regular rate Rhythm: regular rhythm GI: Other: S, sl dist, decreased TTP lower abd Objective Data Vital Signs Vital Signs: Vital Signs - 24 hr 11/11/19 14:00 11/11/19 22:00 11/12/19 06:00 Temperature 36.7 C 36.6 C 36.5 C Pulse Rate 88 96 100 Respiratory Rate 18 16 18 Blood Pressure 139/78 156/80 H 138/73 Pulse Oximetry 98 93 97 11/12/19 09:15 Temperature 36.9 C Pulse Rate 85 Respiratory Rate 18 Blood Pressure 131/79 Pulse Oximetry 95 Intake/Output Intake/Output: Intake & Output 11/09/19 11/10/19 11/11/19 11/12/19 23:59 23:59 23:59 23:59 Intake Total 1540 4310 1437 Output Total 100 Balance 1440 4310 1437 Meds/Results Medications: Active Medications Generic Name Dose Route Start Last Admin Trade Name Freq PRN Reason Stop Dose Admin Hydrocodone Bitart/Acetaminophen 1 tab 11/10/19 21:50 11/11/19 09:11 [place] 10-325 Mg PO 1 tab Q6H PRN Administration Pain Rated 4-6 Ezetimibe 10 mg 11/11/19 09:00 11/11/19 09:03 Zetia PO 10 mg DAILY [facility] Administration Escitalopram Oxalate 10 mg 11/11/19 09:00 11/11/19 09:03 Lexapro PO 10 mg DAILY [facility] Administration Hydrochlorothiazide 12.5 mg 11/11/19 09:00 11/11/19 12:44 Hydrochlorothiazide PO 12.5 mg DAILY [facility] Administration Sodium Chloride 1,000 mls @ 95 mls/hr 11/10/19 15:20 11/12/19 05:38 Normal Saline Iv IV CONT 125 mls/hr .[id number] [facility] Infusion Piperacillin/Tazobactam/Dextrose 3.375 gm in 50 mls @ 100 mls/hr 11/10/19 22:00 11/12/19 04:36 Zosyn 3.375 Gm/D5w 50ml Pm IVPB Infused Q6H [facility] Infusion Lactated Ringer's 1,000 mls @ 150 mls/hr 11/12/19 09:15 11/12/19 11:21 Lr - Lactated Ringers Iv IV CONT 150 mls/hr .[id number] [facility] Infusion Loratadine 5 mg 11/11/19 09:00 11/11/19 12:45 Claritin PO 5 mg QAM [facility] Administration Metoprolol Succinate 50 mg 11/11/19 09:00 11/12/19 08:05 Toprol Xl PO 50 mg DAILY [facility] Administration Morphine Sulfate 4 mg 11/10/19 15:18 Morphine Sulfate Inj IV PUSH Q2H PRN Pain Rated 7-10 Ondansetron HCl 4 mg 11/10/19 15:18 11/12/19 00:10 Zofran Inj IV PUSH 4 mg Q4H PRN Administration Nausea Polyethylene Glycol 17 gm 11/10/19 21:50 Miralax PO DAILY PRN Constipation Simvastatin 20 mg 11/11/19 09:00 11/11/19 09:06 Zocor PO 20 mg DAILY [facility] Administration Sodium Chloride 1 spray 11/11/19 11:00 11/11/19 12:45 Myton Nasal [place] NASAL 1 spray Q6HR PRN Administration Congestion Vitamin D 5,000 unit 11/11/19 09:00 11/11/19 09:02 Vitamin D PO 5,000 unit DAILY [facility] Administration Radiology Results: ITS Impressions Abdomen/Pelvis CT 11/10/19 14:21 IMPRESSION: 1. Colovesical fistula, which may be secondary to chronic sigmoid diverticulitis or less likely sigmoid malignancy. L
[2019-11-12] MEDS: CHOLECALCIFEROL 1,000 UNIT TABLET 5000 UNITS PO (13:10)
[2019-11-12] MEDS: SIMVASTATIN 20 MG TABLET PO (13:11)
[2019-11-12] MEDS: LORATADINE 5 MG TABLET PO (13:11)
[2019-11-12] MEDS: hydroCHLOROthiazide 12.5 MG CAPSULE PO (13:11)
[2019-11-12] MEDS: EZETIMIBE 10 MG TABLET PO (13:11)
[2019-11-12] MEDS: ESCITALOPRAM OXALATE 10 MG TABLET PO (13:11)
--- NOTE | 2019-11-12 18:42 | PC.NURSE ---
Pt has tolerated a full liquid diet this evening with no difficulty. Pt continues to report no pain, and is anxious to return home.
[2019-11-13] MEDS: SODIUM CHLORIDE 0.9% IV 1,000 ML 125 ML IV CONT (04:22)
[2019-11-13 06:00] VITALS: BP 134/67; PULSE 77; RESP 18; TEMP 36.6; O2SAT 93
[2019-11-13 06:00] LABS: Basophils Percent Auto 0.5 % (0.2-1.2); Eosinophils Absolute Auto 0.3 K/mm3 (0-0.3); Eosinophils Percent Auto 5.4 % (0-4.4); Hematocrit 32.9 % (42.0-52.0); Hemoglobin 10.1 g/dL (14.0-18.0); Immature Granulocyte Absolute 0.05 K/mm3 (0.00-0.031); Immature Granulocyte Percent A 0.8 % (0-0.5); Mean Corpuscular HGB Conc 30.7 g/dl (32-36); Mean Corpuscular Volume 81.4 fl (80-100); Monocytes Absolute Auto 0.4 K/mm3 (0.1-0.6); Monocytes Percent Auto 7.3 % (2.6-8.5); Neutrophils Absolute Auto 3.1 K/mm3 (1.3-6.7); Platelet Count Result 388 k/mm3 (150-375); Red Blood Count 4.04 M/mm3 (4.6-6.20); Red Cell Distribution Width 15.4 % (11.5-14.5); White Blood Count 5.9 K/mm3 (4.5-10.0)
[2019-11-13 07:29] LABS: Alanine Aminotransferase 18 U/L (4-50); Albumin Level 2.9 g/dL (3.5-5.1); Alkaline Phosphatase 52 U/L (38-126); Aspartate Amino Transferase 42 U/L (17-59); Bilirubin,Total 0.5 mg/dL (0.2-1.3); Blood Urea Nitrogen 6 mg/dL (9-20); Calcium 8.3 mg/dL (8.4-10.2); Carbon Dioxide 25 mmol/L (22-30); Chloride 108 mmol/L (98-107); Estimated CRCL calculation 115 ml/min; Estimated Glomerular Filt Rate > 60; Glucose 90 mg/dL (75-110); Magnesium 1.8 mg/dL (1.6-2.3); Potassium 3.6 mmol/L (3.4-5.0); Sodium 136 mmol/L (137-145)
[2019-11-13] MEDS: LORATADINE 5 MG TABLET PO (08:49)
[2019-11-13] MEDS: METOPROLOL SUCCINATE EXT REL 50 MG TABCR PO (08:50)
[2019-11-13] MEDS: ESCITALOPRAM OXALATE 10 MG TABLET PO (08:50)
[2019-11-13] MEDS: EZETIMIBE 10 MG TABLET PO (08:50)
[2019-11-13] MEDS: SIMVASTATIN 20 MG TABLET PO (08:50)
[2019-11-13] MEDS: CHOLECALCIFEROL 1,000 UNIT TABLET 5000 UNITS PO (08:50)
[2019-11-13] MEDS: hydroCHLOROthiazide 12.5 MG CAPSULE PO (08:50)
--- NOTE | 2019-11-13 09:13 | PM.PNGS ---
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 Viecnte in 2 wks Subjective Subjective Date/Time Seen: 11/13/19 09:13 Pt feels much better today. Pt reports pressure/pain completely resolved. Pt reports dysuria resolved as well. Pt bryn FLD and reports normal BM this am. Review of Systems Constitutional: Constitutional: Denies chills, Denies fatigue and Denies weakness Cardiovascular: Cardiovascular: Denies chest pain and Denies palpitations Respiratory: Respiratory: Denies dyspnea Gastrointestinal: Gastrointestinal: Denies abdominal pain, Denies bloating, Denies constipation, Denies diarrhea, Denies nausea and Denies vomiting Genitourinary: Genitourinary: Denies dysuria Exam Const: General: no acute distress Resp: Auscultation: clear to auscultation bilaterally Cardio: Rate: regular rate Rhythm: regular rhythm GI: Other: S, sl dist, minimal TTP suprapubic/LLQ Objective Data Vital Signs Vital Signs: Vital Signs - 24 hr 11/12/19 09:15 11/12/19 12:05 11/12/19 12:15 Temperature 36.9 C Pulse Rate 85 83 89 Respiratory Rate 18 25 H 26 H Blood Pressure 131/79 123/62 130/32 L Pulse Oximetry 95 96 96 11/12/19 12:24 11/12/19 12:49 11/12/19 14:00 Temperature 36.7 C 36.4 C Pulse Rate 88 68 88 Respiratory Rate 23 H 16 18 Blood Pressure 139/65 128/60 135/70 Pulse Oximetry 97 97 98 11/12/19 22:00 11/13/19 06:00 Temperature 36.8 C 36.6 C Pulse Rate 75 77 Respiratory Rate 18 18 Blood Pressure 138/69 134/67 Pulse Oximetry 97 93 Intake/Output Intake/Output: Intake & Output 11/10/19 11/11/19 11/12/19 11/13/19 23:59 23:59 23:59 23:59 Intake Total 1540 4310 3350 1300 Output Total 100 Balance 1440 4310 3350 1300 Meds/Results Medications: Active Medications Generic Name Dose Route Start Last Admin Trade Name Freq PRN Reason Stop Dose Admin Hydrocodone Bitart/Acetaminophen 1 tab 11/10/19 21:50 11/11/19 09:11 [place] 10-325 Mg PO 1 tab Q6H PRN Administration Pain Rated 4-6 Ezetimibe 10 mg 11/11/19 09:00 11/13/19 08:50 Zetia PO 10 mg DAILY VAMSI Administration Escitalopram Oxalate 10 mg 11/11/19 09:00 11/13/19 08:50 Lexapro PO 10 mg DAILY VAMSI Administration Hydrochlorothiazide 12.5 mg 11/11/19 09:00 11/13/19 08:50 Hydrochlorothiazide PO 12.5 mg DAILY VAMSI Administration Sodium Chloride 1,000 mls @ 95 mls/hr 11/10/19 15:20 11/13/19 04:22 Normal Saline Iv IV CONT 125 mls/hr .[id number] VAMSI Administration Piperacillin/Tazobactam/Dextrose 3.375 gm in 50 mls @ 100 mls/hr 11/10/19 22:00 11/13/19 04:52 Zosyn 3.375 Gm/D5w 50ml Pm IVPB Infused Q6H VAMSI Infusion Loratadine 5 mg 11/11/19 09:00 11/13/19 08:49 Claritin PO 5 mg QAM VAMSI Administration Metoprolol Succinate 50 mg 11/11/19 09:00 11/13/19 08:50 Toprol Xl PO 50 mg DAILY VAMSI Administration Morphine Sulfate 4 mg 11/10/19 15:18 Morphine Sulfate Inj IV PUSH Q2H PRN Pain Rated 7-10 Ondansetron HCl 4 mg 11/10/19 15:18 11/12/19 00:10 Zofran Inj IV PUSH 4 mg Q4H PRN Administration Nausea Polyethylene Glycol 17 gm 11/10/19 21:50 Miralax PO DAILY PRN Constipation Simvastatin 20 mg 11/11/19 09:00 11/13/19 08:50 Zocor PO 20 mg DAILY VAMSI Administration Sodium Chloride 1 spray 11/11/19 11:00 11/11/19 12:45 [place] Nasal [place] NASAL 1 spray Q6HR PRN Administration Congestion Vitamin D 5,000 unit 11/11/19 09:00 11/13/19 08:50 Vitamin D PO 5,000 unit DAILY VAMSI Administration Radiology Results: ITS Impressions Abdomen/Pelvis CT 11/10/19 14:21 IMPRESSION: 1. Colovesical fistula, which may be secondary to chronic sigmoid diverticulitis or
--- NOTE | 2019-11-13 11:13 | WPDGIPROGNO ---
Progress Note: A&P Additional Plan Patient seen in follow-up for Dr. Black. Patient states he feels much improved today. Had colonoscopy yesterday. Physical exam reveals patient be alert. Lungs are clear. Heart without murmur. Abdomen soft with minimal tenderness. Impression 1. Colovesical fistula. 2. Suspicious colon lesion. Identified at time of colonoscopy yesterday. Final histology pending. Rule out diverticulitis versus carcinoma. Plan is for continued antibiotics to treat the urinary tract infection. Await results of colonoscopic biopsies. Ultimately surgical correction. Cystoscopy has yet to be performed. Subjective Date/time seen: 11/13/19 11:13 Objective Data Vital Signs Vital Signs: Vital Signs - 24 hr 11/12/19 12:05 11/12/19 12:15 11/12/19 12:24 Temperature Pulse Rate 83 89 88 Respiratory Rate 25 H 26 H 23 H Blood Pressure 123/62 130/32 L 139/65 Pulse Oximetry 96 96 97 11/12/19 12:49 11/12/19 14:00 11/12/19 22:00 Temperature 36.7 C 36.4 C 36.8 C Pulse Rate 68 88 75 Respiratory Rate 16 18 18 Blood Pressure 128/60 135/70 138/69 Pulse Oximetry 97 98 97 11/13/19 06:00 Temperature 36.6 C Pulse Rate 77 Respiratory Rate 18 Blood Pressure 134/67 Pulse Oximetry 93 Intake/Output Intake/Output: Intake & Output 11/10/19 11/11/19 11/12/19 11/13/19 23:59 23:59 23:59 23:59 Intake Total 1540 4310 3350 1300 Output Total 100 Balance 1440 4310 3350 1300 Meds/Results Medications: Active Medications Generic Name Dose Route Start Last Admin Trade Name Freq PRN Reason Stop Dose Admin Hydrocodone Bitart/Acetaminophen 1 tab 11/10/19 21:50 11/11/19 09:11 [place] 10-325 Mg PO 1 tab Q6H PRN Administration Pain Rated 4-6 Ezetimibe 10 mg 11/11/19 09:00 11/13/19 08:50 Zetia PO 10 mg DAILY VAMSI Administration Escitalopram Oxalate 10 mg 11/11/19 09:00 11/13/19 08:50 Lexapro PO 10 mg DAILY VAMSI Administration Hydrochlorothiazide 12.5 mg 11/11/19 09:00 11/13/19 08:50 Hydrochlorothiazide PO 12.5 mg DAILY VAMSI Administration Sodium Chloride 1,000 mls @ 95 mls/hr 11/10/19 15:20 11/13/19 04:22 Normal Saline Iv IV CONT 125 mls/hr .[id number] VAMSI Administration Piperacillin/Tazobactam/Dextrose 3.375 gm in 50 mls @ 100 mls/hr 11/10/19 22:00 11/13/19 04:52 Zosyn 3.375 Gm/D5w 50ml Pm IVPB Infused Q6H VAMSI Infusion Loratadine 5 mg 11/11/19 09:00 11/13/19 08:49 Claritin PO 5 mg QAM VAMSI Administration Metoprolol Succinate 50 mg 11/11/19 09:00 11/13/19 08:50 Toprol Xl PO 50 mg DAILY VAMSI Administration Morphine Sulfate 4 mg 11/10/19 15:18 Morphine Sulfate Inj IV PUSH Q2H PRN Pain Rated 7-10 Ondansetron HCl 4 mg 11/10/19 15:18 11/12/19 00:10 Zofran Inj IV PUSH 4 mg Q4H PRN Administration Nausea Polyethylene Glycol 17 gm 11/10/19 21:50 Miralax PO DAILY PRN Constipation Simvastatin 20 mg 11/11/19 09:00 11/13/19 08:50 Zocor PO 20 mg DAILY VAMSI Administration Sodium Chloride 1 spray 11/11/19 11:00 11/11/19 12:45 [place] Nasal [place] NASAL 1 spray Q6HR PRN Administration Congestion Vitamin D 5,000 unit 11/11/19 09:00 11/13/19 08:50 Vitamin D PO 5,000 unit DAILY VAMSI Administration Radiology Results: ITS Impressions Abdomen/Pelvis CT 11/10/19 14:21 IMPRESSION: 1. Colovesical fistula, which may be secondary to chronic sigmoid diverticulitis or less likely sigmoid malignancy. Labs Labs: Laboratory Results - last 24 hr 11/13/19 11/13/19 05:10 05:10 WBC 5.9 RBC 4.04 L Hgb 10.1 L Hct 32.9 L MCV 81.4 MCH 25.0 L MCHC 30.7 L RDW 15.4 H Plt Count 388 H MPV 9.0 Immature Gran % (Auto) 0.8 H Neut % (Auto) 52.0 Lymph % (Auto) 34.0 [place] % (Auto) 7.3 Eos % (Auto) 5.4 H Baso % (Auto) 0.5 Lymph # (Auto) 2.00 [place] # (Auto) 0.4 Eos # (Auto) 0.3 Baso # (Auto) 0.0 Abs
--- NOTE | 2019-11-13 14:46 | PM.DS ---
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 Urology follow up scheduled in 1 week for cystoscopy (4) Ear fullness: Code(s): H93.8X9 - Other specified disorders of ear, unspecified ear Status: Acute Assessment and Plan: Continue claritin (5) Weight loss, non-intentional: Code(s): R63.4 - Abnormal weight loss Status: Acute (6) Essential (primary) hypertension: Code(s): I10 - Essential (primary) hypertension Status: Acute Assessment and Plan: BP 134/67 at time of discharge (7) Major depressive disorder, single episode, unspecified: Code(s): F32.9 - Major depressive disorder, single episode, unspecified Status: Acute DS: Summary Hospital Course Reason for hospitalization: Hematuria and fecaluria Hospital Course: Date of admission: 11/10/19 Date of discharge: 11/13/19 Main Alfonso is a 69 year old male with a PMH significant for CAD, HTN, and HLD who presented to the emergency department on 11/10/19 with complaints of hematuria and fecaluria. He had previously been experiencing pneumaturia and was started on Ciprofloxacin on 11/06/19. At presentation, UA was grossly abnormal and CT a/p revealed colovesical fistula, which may be secondary to chronic diverticulitis or sigmoid malignancy. He was admitted to the hospitalist service on 11/09 and started on IV Zosyn. General surgery, urology, and GI specialists were consulted and followed patient closely. Given patients significant 25 pound non-intentional weight loss, colonoscopy was performed to evaluate for malignancy. Colonoscopy was not able to be completed due to partial colon obstructive lesion which was biopsied with pathology reports pending at time of discharge. Urine culture revealed no growth. Preliminary blood cultures revealed no growth. He also had eustachian tube dysfunction which had been ongoing for several weeks and improved with Claritin and nasal saline which he may continue OTC as outpatient. Patient began feeling much better, urinary symptoms resolved, and he was able to tolerate oral intake. He was anxious for discharge. He will follow up with Dr. Vicente in 2 weeks regarding colovesical fistula which will ultimately require surgical correction. He will follow up with Dr. Little in 1 week on 11/20/19 for cystoscopy. I spoke with Dr. Pan to update him on the patients condition. He will follow up with Dr. Pan in 1-[address] Vicente or Dr. Pan will review pathology results at patients appointment. No GI follow up was recommended at this time. He will continue Ciprofloxacin 250 BID for 10 days. We discussed importance of adhering to antibiotic regimen as well as attending his follow up appointments. He was educated on medications and worrisome signs and symptoms for which to call his doctor or seek medical care. He was discharged home in hemodynamically stable condition on the afternoon of 11/13/2019. Status at Discharge Functional status at discharge: independent ambulation Overall status at discharge: patient is progressing back to baseline Time Spent with Patient Time attestation: Total time spent providing and/or coordinating discharge services:43 minutes Time spent: Greater than 30 minutes Exam Narrative: Exam Narrative: Mr. Alfonso is examined alone today. He is a well nourished 69 year old
== END 2019-11-13 15:09 | disposition home or self-care (01) | DRG 699 ==
LOC: ANHED 15:39 → ANH3MEDSUR 15:51
PROVIDERS: Internal Medicine Gastroenterology; Nurse Practitioner; Physician Assistant; Admitting Provider Internal Medicine; Emergency Provider Emergency Medicine; PCP Family Medicine; Visit Provider Internal Medicine
PROC: 0DJD8ZZ Inspection of Lower Intestinal Tract, Via Natural or Artificial Opening Endoscopic (ICD-10-PCS; CPT 45378; principal; 2019-11-12 10:00)
DX: N32.1 Vesicointestinal fistula (principal); K57.32 Diverticulitis of large intestine without perforation or abscess without bleeding; C18.7 Malignant neoplasm of sigmoid colon; C18.6 Malignant neoplasm of descending colon; N39.0 Urinary tract infection, site not specified; R63.4 Abnormal weight loss; F32.9 Major depressive disorder, single episode, unspecified; I10 Essential (primary) hypertension; I25.10 Atherosclerotic heart disease of native coronary artery without angina pectoris; E78.5 Hyperlipidemia, unspecified; M47.896 Other spondylosis, lumbar region; E55.9 Vitamin D deficiency, unspecified; H93.8X9 Other specified disorders of ear, unspecified ear; E66.9 Obesity, unspecified; Z68.30 Body mass index [BMI] 30.0-30.9, adult; Z95.1 Presence of aortocoronary bypass graft; F17.210 Nicotine dependence, cigarettes, uncomplicated
CPT/HCPCS: 36415; 51701; 74177; 80053; 81001; 83605; 83690; 83735; 85025; 86850; 86900; 86901; 87040; 87086; 88305; 93005; 96361; 96365; 99285; A9270; J2405; J2543; J2704; J7030; J7120; Q9967

== ENCOUNTER 2019-12-19 13:00 | Outpatient (CLI) | payer MEDICARE, SELFPAY ==
--- NOTE | 2019-12-19 14:09 | ECG_ITS ---
Measurements Intervals [place] Rate: 88 P: 102 IN: 146 QRS: 15 QRSD: 88 T: 26 QT: 378 QTc: 458 Interpretive Statements SINUS RHYTHM FREQUENT ATRIAL PREMATURE COMPLEXES ANTEROSEPTAL INFARCT, AGE INDETERMINATE BASELINE ARTIFACT- I, II, III, AVL ABNORMAL ECG Electronically Signed On 12-19-2019 14:40:45 CDT by Dewayne Tineo D.O.
[2019-12-19 14:36] LABS: Basophils Percent Auto 0.6 % (0.2-1.2); Eosinophils Absolute Auto 0.2 K/mm3 (0-0.3); Eosinophils Percent Auto 2.2 % (0-4.4); Hemoglobin 11.6 g/dL (14.0-18.0); Immature Granulocyte Absolute 0.02 K/mm3 (0.00-0.031); Immature Granulocyte Percent A 0.3 % (0-0.5); Lymphocytes Absolute Auto 3.25 K/mm3 (0.9-3.2); Lymphocytes Percent Auto 44.8 % (18.3-44.2); Mean Corpuscular HGB Conc 32.2 g/dl (32-36); Mean Corpuscular Hemoglobin 25.8 pg (26-34); Mean Platelet Volume 8.5 fl (7.4-10.4); Monocytes Absolute Auto 0.8 K/mm3 (0.1-0.6); Neutrophils Percent Auto 41.1 % (45.5-73.1); Platelet Count Result 406 k/mm3 (150-375); Red Cell Distribution Width 16.6 % (11.5-14.5); White Blood Count 7.3 K/mm3 (4.5-10.0)
[2019-12-19 14:39] LABS: Prothrombin Time 13.1 Seconds (11.1-14.7)
[2019-12-19 14:40] LABS: Partial Thromboplastin Time 29.7 SECONDS (22.3-36.8)
[2019-12-19 15:00] LABS: Alanine Aminotransferase 12 U/L (4-50); Albumin Level 3.9 g/dL (3.5-5.1); Alkaline Phosphatase 106 U/L (38-126); Aspartate Amino Transferase 23 U/L (17-59); Bilirubin,Total 0.2 mg/dL (0.2-1.3); Blood Urea Nitrogen 12 mg/dL (9-20); Calcium 9.3 mg/dL (8.4-10.2); Carbon Dioxide 27 mmol/L (22-30); Chloride 102 mmol/L (98-107); Estimated Glomerular Filt Rate > 60; Glucose 88 mg/dL (75-110); Potassium 4.4 mmol/L (3.4-5.0); Sodium 138 mmol/L (137-145)
[2019-12-19 15:30] LABS: Carcinoembryonic Antigen 11.6 ng/mL (0.0-3.0)
== END 2019-12-19 13:01 | disposition home or self-care (01) ==
PROVIDERS: PCP Family Medicine; Visit Provider Surgery
DX: C18.9 Malignant neoplasm of colon, unspecified (principal); N32.1 Vesicointestinal fistula; R94.31 Abnormal electrocardiogram [ECG] [EKG]
CPT/HCPCS: 36415; 80053; 82378; 85025; 85610; 85730; 86850; 86900; 86901; 87077; 87086; 87088; 93005

== ENCOUNTER 2019-12-27 01:22 | Outpatient (CLI) | payer MEDICARE, SELFPAY ==
[2019-12-27 16:42] LABS: SARS-CoV-2 RNA PCR Negative
== END 2019-12-27 01:23 | disposition home or self-care (01) ==
LOC: ANHCOVIDDT 01:23
PROVIDERS: PCP Family Medicine; Visit Provider Surgery
DX: Z01.812 Encounter for preprocedural laboratory examination (principal); Z20.828 Contact with and (suspected) exposure to other viral communicable diseases
CPT/HCPCS: 87635; C9803; U0003

== ENCOUNTER 2019-12-30 15:16 | Inpatient (IN) | payer MEDICARE, SELFPAY ==
[2019-12-19 13:29] VITALS: BMI 29.5
[2019-12-19 14:06] VITALS: BP 123/69; PULSE 85; RESP 18; TEMP 37.1; O2SAT 98
[2019-12-30] VITALS (20 sets, daily range): BP systolic 142–199; BP diastolic 67–112; PULSE 89–104; RESP 10–25; TEMP 36.4–36.9; O2SAT 94–100
--- NOTE | 2019-12-30 00:11 | WPDANESEPP ---
Anes - Eval Pre Procedure Procedure: Operation Date: 12/30/19 07:30 Proposed Procedures p Left Colectomy, Repair Colovesical Fistula - Chase Vicente MD s Cystoscopy, Bilateral External Stent Placement for Abdominal Surgery - George Little MD s Possible Bladder Resection - George Little MD Date/Time: 12/30/19 00:11 Pre Op Diagnosis: descending sigmoid colon CA, colovesical fistula Patient Data Age: 69 Gender: M Height: 5 ft 11 in Weight: 96.1 kg Last Vital Signs Temp 98.8 F 12/19/19 14:06 Pulse 85 12/19/19 14:06 Resp 18 12/19/19 14:06 BP 123/69 12/19/19 14:06 Pulse Ox 98 12/19/19 14:06 Allergies Allergy/AdvReac Type Severity Reaction Status Date / Time atorvastatin Allergy Unknown Dizziness Verified 12/19/19 13:15 celecoxib Allergy Unknown Nausea Verified 12/19/19 13:15 duloxetine Allergy Unknown Nausea Verified 12/19/19 13:15 rosuvastatin Allergy Unknown Dizziness Verified 12/19/19 13:15 Home Medications Medication Instructions Recorded Confirmed Type ezetimibe 10 mg tablet 10 mg PO HS 08/29/19 12/19/19 History hydrochlorothiazide 12.5 mg capsule 12.5 mg PO DAILY 08/29/19 12/19/19 History aspirin 325 mg PO HS 11/10/19 12/19/19 History cholecalciferol (vitamin D3) 125 mcg PO HS 11/10/19 12/19/19 History [Vitamin D3] polyethylene glycol 3350 [Miralax] 17 g PO DAILY PRN 11/10/19 12/19/19 History hydrocodone 10 mg-acetaminophen 1 tablet PO Q6H PRN #90 tablet 12/12/19 12/19/19 Rx 325 mg tablet amitriptyline 25 mg PO HS 12/19/19 12/19/19 History cephalexin [Keflex] 250 mg PO DAILY 12/19/19 12/19/19 History escitalopram oxalate 10 mg PO HS 12/19/19 12/19/19 History metoprolol succinate 50 mg PO HS 12/19/19 12/19/19 History simvastatin 20 mg PO HS 12/19/19 12/19/19 History Patient hx anesthesia problems: none Family hx anesthesia problems: none PMFSH Past Medical History Medical History Atherosclerotic heart disease of [place] coronary artery without 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 colon Chronic, continuous use of opioids hydrocodone x 13 years Colon cancer Colovesical fistula Current tobacco use Decreased libido Degenerative joint disease (DJD) of lumbar spine Diverticulitis of large intestine with complication Essential (primary) hypertension Major depressive disorder, single episode, unspecified Mixed hyperlipidemia Pneumaturia Seasonal allergies Vitamin D deficiency, unspecified Surgical History Surgical History Hx of CABG 6 vessel CABG S/P CABG x 6 Family History Family History Mother Hypertension Heart disease Other Family history of coronary artery disease Family history of malignant neoplasm Social History Social History Social History: The patient lives with his who is a durable power associate attorney for healthcare. The patient desires to be a full code. 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 Ale is his 's name. Patient currently smokes at least a pack cigarettes a day. He has smoked since the age of 12. No illicit drugs marijuana nor alcohol Smoking packs per day: 1 Smoking cigarettes per day: 20.0 Years smoked: 57 Smoking pack-years: 57.00 Smoking status: Current every day smoker Second hand tobacco smoke exposure: No Alcohol intake: never Substance use: never Substance use type: does not use Gender identity (if verbalized by the patient): Male Spiritual care concerns: No Agree to blood products: Yes Exam Day of Procedure 12/30/19 00:11 Patient weight: overweight
[2019-12-30] MEDS: LACTATED RINGERS 1,000 ML 30 ML IV CONT ×2 (06:25→13:10)
--- NOTE | 2019-12-30 06:36 | WPDANESEPPF ---
Anes - Initial Pre Proc Eval Procedure: Operation Date: 12/30/19 07:30 Proposed Procedures p Left Colectomy, Repair Colovesical Fistula - Chase Vicente MD s Cystoscopy, Bilateral External Stent Placement for Abdominal Surgery - George Little MD s Possible Bladder Resection - George Little MD Date/Time: 12/30/19 06:36 Surgeon: Chase Vicente MD Pre Op Diagnosis: descending sigmoid colon CA, colovesical fistula Patient Data Age: 69 Gender: M Height: 1.8 m Weight: 96.1 kg Last Vital Signs Temp 37.1 C 12/19/19 14:06 Pulse 85 12/19/19 14:06 Resp 18 12/19/19 14:06 BP 123/69 12/19/19 14:06 Pulse Ox 98 12/19/19 14:06 Allergies Allergy/AdvReac Type Severity Reaction Status Date / Time atorvastatin Allergy Unknown Dizziness Verified 12/19/19 13:15 celecoxib Allergy Unknown Nausea Verified 12/19/19 13:15 duloxetine Allergy Unknown Nausea Verified 12/19/19 13:15 rosuvastatin Allergy Unknown Dizziness Verified 12/19/19 13:15 Home Medications Medication Instructions Recorded Confirmed Type ezetimibe 10 mg tablet 10 mg PO HS 08/29/19 12/19/19 History hydrochlorothiazide 12.5 mg capsule 12.5 mg PO DAILY 08/29/19 12/19/19 History aspirin 325 mg PO HS 11/10/19 12/19/19 History cholecalciferol (vitamin D3) 125 mcg PO HS 11/10/19 12/19/19 History [Vitamin D3] polyethylene glycol 3350 [Miralax] 17 g PO DAILY PRN 11/10/19 12/19/19 History hydrocodone 10 mg-acetaminophen 1 tablet PO Q6H PRN #90 tablet 12/12/19 12/19/19 Rx 325 mg tablet amitriptyline 25 mg PO HS 12/19/19 12/19/19 History cephalexin [Keflex] 250 mg PO DAILY 12/19/19 12/19/19 History escitalopram oxalate 10 mg PO HS 12/19/19 12/19/19 History metoprolol succinate 50 mg PO HS 12/19/19 12/19/19 History simvastatin 20 mg PO HS 12/19/19 12/19/19 History Patient hx anesthesia problems: none Family hx anesthesia problems: none PMFSH Past Medical History Medical History (Updated 12/30/19 @ 06:37 by Sterling De Paz DO) Atherosclerotic heart disease of [place] coronary artery without angina pectoris >4 METs Bladder fistula Cancer of sigmoid colon Chronic, continuous use of opioids hydrocodone x 13 years Colon cancer Colovesical fistula Current tobacco use Decreased libido Degenerative joint disease (DJD) of lumbar spine Diverticulitis of large intestine with complication Essential (primary) hypertension Major depressive disorder, single episode, unspecified Mixed hyperlipidemia Pneumaturia Seasonal allergies Vitamin D deficiency, unspecified Surgical History Surgical History Hx of CABG 6 vessel CABG S/P CABG x 6 Family History Family History Mother Hypertension Heart disease Other Family history of coronary artery disease Family history of malignant neoplasm Social History Social History Social History: The patient lives with his who is a durable power sports attorney for healthcare. The patient desires to be a full code. 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 Ale is his 's name. Patient currently smokes at least a pack cigarettes a day. He has smoked since the age of 12. No illicit drugs marijuana nor alcohol Smoking packs per day: 1 Smoking cigarettes per day: 20.0 Years smoked: 57 Smoking pack-years: 57.00 Smoking status: Current every day smoker Second hand tobacco smoke exposure: No Alcohol intake: never Substance use: never Substance use type: does not use Gender identity (if verbalized by the patient): Male Spiritual care concerns: No Agree to blood products: Yes Anes - Eval Final PreProcedure Day of Procedure 12/30/19 06:36 Patient weight: overweight Heart: regular rate and rhythm Lungs: clear to auscultation and nor
--- NOTE | 2019-12-30 06:48 | WPDURCON ---
Assessment and Plan Assessment and plan (1) Colon cancer: Qualifiers: Colon location: sigmoid Qualified Code(s): C18.7 - Malignant neoplasm of sigmoid colon Code(s): C18.9 - Malignant neoplasm of colon, unspecified Status: Acute Assessment and Plan: Resection per Dr Vicente. Will plan on cysto with bilateral external ureteral stents. (2) Bladder fistula: Code(s): N32.2 - Vesical fistula, not elsewhere classified Status: Acute Assessment and Plan: Will be available for help with bladder resection. Urology Consult Note HPI Date Seen: 12/30/19 Requesting Physician: Chase Vicente MD Primary Care Provider: Rubin Pan MD Consult Narrative Narrative: Main Alfonso is a 69 year old male with colon carcinoma and colovesical fistula. Presents for resection of mass with most likely need for bladder resection. Will also place les op bilateral external ureteral stents. Review of Systems Review of Systems: All systems reviewed & are unremarkable except as noted in HPI and below PMFSH Past Medical History Medical History Atherosclerotic heart disease of [place] coronary artery without angina pectoris >4 METs Bladder fistula Cancer of sigmoid colon Chronic, continuous use of opioids hydrocodone x 13 years Colon cancer Colovesical fistula Current tobacco use Decreased libido Degenerative joint disease (DJD) of lumbar spine Diverticulitis of large intestine with complication Essential (primary) hypertension Major depressive disorder, single episode, unspecified Mixed hyperlipidemia Pneumaturia Seasonal allergies Vitamin D deficiency, unspecified Surgical History Surgical History Hx of CABG 6 vessel CABG S/P CABG x 6 Family History Family History Mother Hypertension Heart disease Other Family history of coronary artery disease Family history of malignant neoplasm Social History Social History Social History: The patient lives with his who is a durable power catalyst recovery operator for healthcare. The patient desires to be a full code. 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 Ale is his 's name. Patient currently smokes at least a pack cigarettes a day. He has smoked since the age of 12. No illicit drugs marijuana nor alcohol Smoking packs per day: 1 Smoking cigarettes per day: 20.0 Years smoked: 57 Smoking pack-years: 57.00 Smoking status: Current every day smoker Second hand tobacco smoke exposure: No Alcohol intake: never Substance use: never Substance use type: does not use Gender identity (if verbalized by the patient): Male Spiritual care concerns: No Agree to blood products: Yes Meds Home Medications and Allergies Home Medications Medication Instructions Recorded Confirmed Type ezetimibe 10 mg tablet 10 mg PO HS 08/29/19 12/19/19 History hydrochlorothiazide 12.5 mg capsule 12.5 mg PO DAILY 08/29/19 12/19/19 History aspirin 325 mg PO HS 11/10/19 12/19/19 History cholecalciferol (vitamin D3) 125 mcg PO HS 11/10/19 12/19/19 History [Vitamin D3] polyethylene glycol 3350 [Miralax] 17 g PO DAILY PRN 11/10/19 12/19/19 History hydrocodone 10 mg-acetaminophen 1 tablet PO Q6H PRN #90 tablet 12/12/19 12/19/19 Rx 325 mg tablet amitriptyline 25 mg PO HS 12/19/19 12/19/19 History cephalexin [Keflex] 250 mg PO DAILY 12/19/19 12/19/19 History escitalopram oxalate 10 mg PO HS 12/19/19 12/19/19 History metoprolol succinate 50 mg PO HS 12/19/19 12/19/19 History simvastatin 20 mg PO HS 12/19/19 12/19/19 History Allergies Allergy/AdvReac Type Severity Reaction Status Date / Time atorvastatin Allergy Unknown Dizziness Ve
--- NOTE | 2019-12-30 06:58 | WPDHPUPDATE1 ---
History and Physical Update Update Date/Time: 12/30/19 06:58 History and Physical has been reviewed, including an updated exam of the patient. There are NO changes in the patient's condition. Risks, benefits, and alternatives have been discussed and questions answered. Patient agrees to proceed with procedure.
[2019-12-30] MEDS: ceFAZolin 2 GM/D5W 50 ML 2 GM/50 ML BAG IVPB (07:35)
[2019-12-30] MEDS: ceFAZolin SODIUM 1 GM VIAL 2 GM IV PUSH (11:35)
--- NOTE | 2019-12-30 13:24 | PM.PROC ---
Procedure Note - Detailed Date of procedure: 12/30/19 Pre-op diagnosis: descending sigmoid colon CA, colovesical fistula Descending colon cancer, colovesical fistula, sigmoid colon cancer Post-op diagnosis: other (Descending colon cancer with colovesical fistula, invasion sigmoid colon.) Procedure performed: Left colectomy with colorectal anastomosis, takedown splenic flexure. Cystoscopy per Dr. Little Resection and repair colovesical fistula per Dr. Tejada--these procedures will be in a separate dictation Description of procedure: The patient was taken to surgery and Dr. Little proceeded with cystoscopy. His intention was to place ureteral stents as well but there was quite a bit of blood and he was unable to see the ureteral orifices. He communicated this to me. Feldman catheter was placed. We then positioned the patient in Jose stirrups with lithotomy. Rectal tube was placed. The abdomen was prepped and draped. A midline incision was made and dissection was carried out through the midline fascia. After entering the abdomen initially, it was obvious we would need an extension of the incision cephalad. This was carried out and the incision was extended at least 6 inches cephalad of the umbilicus. In the suprapubic area, the tumor involved the peritoneum. I divided the peritoneum on either side of the tumor and distal to the tumor near the pubis. This left the anterior peritoneum attached to the tumor in this area. This allowed me to place a wound guard. From there, we proceeded with the surgery. The lateral peritoneal attachments to the descending colon were carefully divided. The left ureter was found. It was isolated and encircled with a vessel loop. I followed the ureter down towards the pelvis seeing that it was well away from the tumor mass that was relatively anterior in the pelvis. I then continued the dissection of the left colon. We continued to free the lateral peritoneal attachments to the descending colon up to near the splenic flexure. The splenic flexure was pretty high. I brought down the mid transverse colon and freed the omental attachments to the distal transverse colon. I was able to free the omental adhesions and gain access to the lesser sac. I continued mobilizing the omentum over towards the splenic flexure. I then went back to the lateral peritoneal attachments to the proximal descending colon and freed these. Most of the dissection was done with the cautery. Some use of the Harmonic scalpel was she used as well. I continued mobilizing the descending colon medially freeing it on its mesentery. I then went back to the splenic flexure and freed the splenic flexure of the colon from the overlying omentum. I was then able to free peritoneal attachments to the splenic flexure and mobilize it down into the field. I continued this mobilization until it was is mobile as I could make it without dividing some of the mesentery. Staying near the root of the mesentery, I opened the mesentery of the mid descending colon and dissected this towards the splenic flexure. I continued the mobilization of the splenic flexure and division of the mesentery ensuring that we did not encroach on the marginal artery. Eventually, I exposed and divided with the Harmonic scalpel the inferior mesenteric vein. I finished dividing the mesentery to the mid and distal transverse colon and we had a full splenic flexure mobilization. I inspected the bowel and it was all very well vascularized. I then chose an area of the descending colon that was at least 5 cm from the tumor mass and decided to make this the proximal resection. I used the Harmonic scalpel to divide the mesentery leading up to this portion of descending colon. I then used a TLC 75 stapler to divide the descending colon at this site. From there I was able to put the descending colon in the left colic gutter and left upper quadrant. I went back to the tumor mass and exposed the abdominal aorta. I
[2019-12-30] MEDS: HYDROMORPHONE HCL 1 MG/ML INJ 0.25 MG IV PUSH ×2 (14:15→14:20)
--- NOTE | 2019-12-30 14:17 | SUR.PHASEI ---
DR. CARDOZA SPOKE WITH ABOUT 30 MIN. AGO. THIS RN ALSO UPDATED .
--- NOTE | 2019-12-30 15:00 | SUR.PHASEI ---
DR. PHILLIPS CALLED RE: PT BP OF 190'S/100. LABETOL 10 MG GIVEN.
[2019-12-30] MEDS: LACTATED RINGERS 1,000 ML 100 ML IV CONT (16:09)
[2019-12-30] MEDS: MORPHINE SULFATE 2 MG/ML INJ IV PUSH (16:13)
--- NOTE | 2019-12-30 17:07 | P.OP_ITS ---
Procedure Note - Detailed Date of procedure: 12/30/19 Pre-op diagnosis: LEFT COLON CA,COLOVESICAL FISTULA Post-op diagnosis: same Procedure performed: Closure of a colovesical fistula Description of procedure: Patient is in the operative suite where he has undergone extensive dissection by Dr. Chase Vicente. He has isolated the cancer arising in the sigmoid colon and dissected it to the point of colovesical fistulization, arising from the dome of the bladder. With care taken to avoid any injury to the colon itself, or its mesentery, a circumferential incision was is made around the fistula tract with an attempt to preserve at least a 1 cm margin from the sigmoid colon wall. This is done via dissection with electrocautery. The ureters had been isolated and identified prior into any dissection into the bladder dome. With inspection of the interior of the bladder it is apparent that this fistula tract as well away from the bladder trigone. Fistula tract was dissected in its entirety and left adherent to the sigmoid colon. I then closed the bladder in 2 layers with running 2 0 Vicryl through the mucosa followed by an imbricating 0 muscular running 2-0 Vicryl. I intend to leave the indwelling 16 F Feldman catheter until a postoperative cystogram can be obtained.Blood loss during this aspect of the procedure was 20- 25 cc. The remainder of this operative note will be dictated by Dr. Vicente. Implants: None Anesthesia: GLMA Surgeon: Max Tejada MD Estimated blood loss (mL): 20 Drains: Yes (16F Feldman) Packing: No Pathology: yes Complications: No immediate complications Condition: stable
[2019-12-30] MEDS: ACETAMINOPHEN 500 MG TABLET 1000 MG PO (17:33)
[2019-12-30] MEDS: IBUPROFEN IV 800 MG/200 ML 800 MG/200 ML BAG 400 MG IVPB (17:34)
--- NOTE | 2019-12-30 17:44 | ADMGEN ---
This patient, Main Alfonso, was admitted to 3 [facility] Surg Room 320-01. Patient/family oriented to hospital policies and general routines including ID bracelet, bed and alarms, visiting hours, pain management, procedures, bathroom and other care routines, personal items, smoking policy, room service/diet, and visiting hours. Valuables list has been completed. Information on how to activate the Rapid Response Team has been discussed. Patient/Family are encouraged to report perceived risks to care and to ask questions if they do not understand what they are told or what they should do.
[2019-12-30] MEDS: MORPHINE SULFATE 4 MG/ML INJ IV PUSH ×2 (18:23→21:19)
[2019-12-30] MEDS: hydrALAZINE HCL 20 MG/ML VIAL 10 MG IV PUSH (18:46)
--- NOTE | 2019-12-30 19:59 | PC.NURSE ---
VS: 98,104,20,157/73,96%. Patient is diaphoretic and c/o general feeling of feeling very bad . Abdominal pain 4/10. Upon auscultation of bowel sounds, patient's aorta/pulse is easily audible/prominent-per previous nurse this was not audible earlier. , occupational health nurse manager, notified that patient's b/p remains above 150, mild tachycardia, diaphoresis, urine output 150 ml since return from PACU, audible pulse over mid abdomen and general condition. states that he would like the patient's blood pressure to remain below 160 systolic. Orders received and entered.
[2019-12-30] MEDS: ESCITALOPRAM OXALATE 10 MG TABLET PO (21:11)
[2019-12-30] MEDS: METOPROLOL SUCCINATE EXT REL 50 MG TABCR PO (21:12)
[2019-12-30] MEDS: SIMVASTATIN 20 MG TABLET PO (21:12)
[2019-12-30] MEDS: ASPIRIN 325 MG ENTERIC TABLET PO (21:13)
[2019-12-30] MEDS: FAMOTIDINE 20 MG/2 ML VIAL IV PUSH (21:13)
[2019-12-30] MEDS: ENOXAPARIN 30 MG/0.3 ML SYRINGE SUB-Q (21:13)
[2019-12-30] MEDS: EZETIMIBE 10 MG TABLET PO (21:13)
[2019-12-30] MEDS: AMITRIPTYLINE HCL 25 MG TABLET PO (21:19)
[2019-12-31] VITALS (13 sets, daily range): BP systolic 132–151; BP diastolic 34–86; PULSE 72–103; RESP 16–20; TEMP 36.3–36.7; O2SAT 94–99
[2019-12-31] MEDS: IBUPROFEN IV 800 MG/200 ML 800 MG/200 ML BAG 400 MG IVPB ×5 (00:52→23:53)
[2019-12-31] MEDS: ACETAMINOPHEN 500 MG TABLET 1000 MG PO ×5 (00:53→23:54)
[2019-12-31] MEDS: MORPHINE SULFATE 4 MG/ML INJ IV PUSH ×2 (01:28→10:28)
[2019-12-31 02:15] LABS: Glucose Point of Care 171 (65-105)
[2019-12-31] MEDS: LACTATED RINGERS 1,000 ML 100 ML IV CONT (03:39)
[2019-12-31 07:10] LABS: Basophils Percent Auto 0.1 % (0.2-1.2); Hematocrit 30.9 % (42.0-52.0); Hemoglobin 9.8 g/dL (14.0-18.0); Immature Granulocyte Absolute 0.04 K/mm3 (0.00-0.031); Immature Granulocyte Percent A 0.3 % (0-0.5); Lymphocytes Absolute Auto 1.77 K/mm3 (0.9-3.2); Lymphocytes Percent Auto 14.8 % (18.3-44.2); Mean Corpuscular HGB Conc 31.7 g/dl (32-36); Mean Platelet Volume 8.8 fl (7.4-10.4); Monocytes Absolute Auto 0.7 K/mm3 (0.1-0.6); Monocytes Percent Auto 5.7 % (2.6-8.5); Neutrophils Absolute Auto 9.5 K/mm3 (1.3-6.7); Neutrophils Percent Auto 79.1 % (45.5-73.1); Platelet Count Result 378 k/mm3 (150-375); Red Blood Count 3.77 M/mm3 (4.6-6.20)
[2019-12-31 07:23] LABS: Blood Urea Nitrogen 13 mg/dL (9-20); Calcium 8.7 mg/dL (8.4-10.2); Carbon Dioxide 26 mmol/L (22-30); Chloride 104 mmol/L (98-107); Estimated CRCL calculation 120 ml/min; Estimated Glomerular Filt Rate > 60; Glucose 126 mg/dL (75-110); Potassium 4.3 mmol/L (3.4-5.0); Sodium 133 mmol/L (137-145)
--- NOTE | 2019-12-31 09:04 | WPDANESPN ---
Anes - Prog Note Post-Op Date/Time: 12/31/19 09:04 Cardiovascular status: normal Respiratory status: normal Airway patency: baseline Mental status: baseline Post-Op hydration status: normal Vital Signs: Last Vital Signs Temp 36.7 C 12/31/19 06:00 Pulse 100 12/31/19 06:00 Resp 16 12/31/19 06:00 BP 132/66 12/31/19 06:00 Pulse Ox 99 12/31/19 06:00 I/O: Intake & Output 12/30/19 12/31/19 12/31/19 23:59 07:59 15:59 Intake Total 260 1560 Output Total 250 850 Balance 10 710 Laboratory Tests 12/31/19 06:38 12/31/19 06:38 12/30/19 12/31/19 12/31/19 21:11 06:38 06:38 WBC 12.0 H RBC 3.77 L Hgb 9.8 L Hct 30.9 L MCV 82.0 MCH 26.0 MCHC 31.7 L RDW 17.0 H Plt Count 378 H MPV 8.8 Immature Gran % (Auto) 0.3 Neut % (Auto) 79.1 H Lymph % (Auto) 14.8 L [place] % (Auto) 5.7 Eos % (Auto) 0.0 Baso % (Auto) 0.1 L Lymph # (Auto) 1.77 [place] # (Auto) 0.7 H Eos # (Auto) 0.0 Baso # (Auto) 0.0 Abs Immat Gran (auto) 0.04 H Absolute Neuts (auto) 9.5 H Absolute Nucleated RBC 0.0 Nucleated RBC % 0.0 Sodium 133 L Potassium 4.3 Chloride 104 Carbon Dioxide 26 BUN 13 Creatinine 0.50 L Estim Creat Clear Calc 120 Estimated GFR > 60 Glucose 126 H POC Capillary Glucose 171 H Calcium 8.7 Post-procedural complaints: none Patient Feedback: Patient satisfied with anesthetic care.
[2019-12-31] MEDS: hydroCHLOROthiazide 12.5 MG CAPSULE PO (10:21)
[2019-12-31] MEDS: FAMOTIDINE 20 MG/2 ML VIAL IV PUSH ×2 (10:21→21:32)
[2019-12-31] MEDS: ENOXAPARIN 40 MG/0.4 ML SYRINGE SUB-Q (11:37)
--- NOTE | 2019-12-31 12:39 | WPDUROPN2 ---
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 Urine is clear and draining to gravity. Will do a cystogram as an outpatient next week and remove olivera afterward if cystogram is negative. No further evaluation needed at this time. (2) Colovesical fistula: Code(s): N32.1 - Vesicointestinal fistula Status: Acute Subjective Subjective Date/Time Seen: 12/31/19 12:39 POD #1 Closure of Colovesicle Fistula Review of Systems Respiratory: Respiratory: Reports no additional respiratory complaints Gastrointestinal: Gastrointestinal: Reports abdominal pain, Denies nausea and Denies vomiting Genitourinary: Genitourinary: Denies hematuria Exam Resp: Effort & Inspection: normal respiratory effort Cardio: Rate: regular rate GI: GI Palp: Yes abdominal tenderness and Yes Tenderness to palpation present (GI) (at incision site, wound covered, dressing dry and intact) : Meatus: meatus normal Urinary Catheter: Urinary Catheter: patent and draining and urine clear Extrem: General: no edema Objective Data Vital Signs Vital Signs: Vital Signs - 24 hr 12/30/19 13:10 12/30/19 13:25 12/30/19 13:40 Temperature 98.3 F Pulse Rate 92 100 98 Respiratory Rate 25 H 22 H 21 H Blood Pressure 150/100 H 180/97 H 180/97 H Pulse Oximetry 94 99 98 12/30/19 13:55 12/30/19 14:02 12/30/19 14:10 Temperature Pulse Rate 99 101 H 102 H Respiratory Rate 22 H 24 H 21 H Blood Pressure 184/97 H 192/99 H 186/103 H Pulse Oximetry 98 99 94 12/30/19 14:25 12/30/19 14:40 12/30/19 15:04 Temperature Pulse Rate 89 89 90 Respiratory Rate 23 H 10 L 25 H Blood Pressure 199/100 H 194/112 H 175/86 H Pulse Oximetry 94 94 95 12/30/19 15:15 12/30/19 15:30 12/30/19 16:00 Temperature 98.5 F 98.1 F 97.9 F Pulse Rate 90 94 95 Respiratory Rate 18 18 18 Blood Pressure 169/87 H 175/89 H 176/85 H Pulse Oximetry 94 94 98 12/30/19 17:19 12/30/19 19:55 12/30/19 21:00 Temperature 97.7 F 98 F 97.8 F Pulse Rate 94 104 H 100 Respiratory Rate 18 20 20 Blood Pressure 176/89 H 157/73 H 160/71 H Pulse Oximetry 99 96 97 12/30/19 21:06 12/30/19 21:12 12/30/19 22:00 Temperature 97.6 F Pulse Rate 102 H 104 H 101 H Respiratory Rate 18 Blood Pressure 146/70 H Pulse Oximetry 97 12/30/19 23:00 12/31/19 00:00 12/31/19 02:00 Temperature 97.8 F 98 F 98.0 F Pulse Rate 100 101 H 97 Respiratory Rate 16 20 16 Blood Pressure 142/67 H 151/72 H 133/66 Pulse Oximetry 97 96 97 12/31/19 03:00 12/31/19 04:00 12/31/19 06:00 Temperature 97.8 F 98.0 F Pulse Rate 98 97 100 Respiratory Rate 16 16 Blood Pressure 136/34 L 132/66 Pulse Oximetry 94 99 12/31/19 10:00 Temperature 98.0 F Pulse Rate 87 Respiratory Rate 18 Blood Pressure 132/68 Pulse Oximetry 95 Intake/Output Intake/Output: Intake & Output 12/28/19 12/29/19 12/30/19 12/31/19 23:59 23:59 23:59 23:59 Intake Total 1410 1560 Output Total 400 850 Balance 1010 710 Meds/Results Medications: Active Medications Generic Name Dose Route Start Last Admin Trade Name Freq PRN Reason Stop Dose Admin Acetaminophen 1,000 mg 12/30/19 18:00 12/31/19 06:00 Tylenol Tablet PO 1,000 mg Q6HR VAMSI Administration Alvimopan 12 mg 12/31/19 12:00 Entereg PO 01/07/20 12:01 Q12HR VAMSI Amitriptyline HCl 25 mg 12/30/19 21:00 12/30/19 21:19 Elavil PO 25 mg HS VAMSI Administration Aspirin 325 mg 12/30/19 21:00 12/30/19 21:13 Aspirin Ec PO 325 mg HS VAMSI Administration Ezetimibe 10 mg 12/30/19 21:00 12/30/19 21:13 Zetia PO 10 mg HS VAMSI Administration Enoxaparin Sodium 40 mg 06/17/20 09:00 12/31/19 11:37 Lovenox SUB-Q 40 mg DAILY VAMSI Administration Escitalopram Oxalate 10 mg 12/30/19 21:00 12/30/19 21:11 Lexapro PO 10 mg HS
[2019-12-31] MEDS: ALVIMOPAN 12 MG CAPSULE PO ×2 (13:45→21:34)
[2019-12-31] MEDS: LACTATED RINGERS 1,000 ML 80 ML IV CONT ×2 (13:46→23:53)
--- NOTE | 2019-12-31 16:26 | PM.PNGS ---
Progress Note: A&P Assessment and Plan (1) Colon cancer: Qualifiers: Colon location: sigmoid Qualified Code(s): C18.7 - Malignant neoplasm of sigmoid colon Code(s): C18.9 - Malignant neoplasm of colon, unspecified Status: Acute Assessment and Plan: POD#1 and patient doing well. Continue clear liquids and low rate IV fluids today. Will plan on looking at abdominal incision tomorrow. Will give Trazadone PRN to help with sleep tonight. Continue Feldman catheter. Encouraged OOB/IS and increasing activity. Pathology pending. (2) Colovesical fistula: Code(s): N32.1 - Vesicointestinal fistula Status: Acute Assessment and Plan: Urology's recommendations noted and appreciate help. Feldman to remain in place on discharge. Follow-up next week for cystogram and possible removal depending on results. (3) Atherosclerotic heart disease of [place] coronary artery without angina pectoris: Qualifiers: [place] vs. transplanted heart: [place] heart Qualified Code(s): I25.10 - Atherosclerotic heart disease of [place] coronary artery without angina pectoris Code(s): I25.10 - Atherosclerotic heart disease of [place] coronary artery without angina pectoris Status: Acute (4) Degenerative joint disease (DJD) of lumbar spine: Qualifiers: Spinal osteoarthritis complication: without myelopathy or radiculopathy Qualified Code(s): M47.816 - Spondylosis without myelopathy or radiculopathy, lumbar region Code(s): M47.816 - Spondylosis without myelopathy or radiculopathy, lumbar region Status: Acute (5) Essential (primary) hypertension: Code(s): I10 - Essential (primary) hypertension Status: Acute Assessment and Plan: Home medications restarted. BP stable. Continue to monitor. (6) Current tobacco use: Code(s): Z72.0 - Tobacco use Status: Acute Assessment and Plan: Offered Nicotine patch, patient refused. Will continue to monitor. Additional Plan Patient seen with Dr. Vicente and discussed his plan of care with him. Subjective Subjective Date/Time Seen: 12/31/19 16:26 Post Op day: 1 (Left colectomy with colorectal anastomosis, cystoscopy with closure of colovesical fistula) Patient reports: tolerating liquids well and no bowel movement Interval history: Patient seen and examined. Reports doing well today, pain being well-controlled with current medications. Tolerating clear liquids with no nausea, vomiting, or bloating. No other complaints at this time. Review of Systems Review of Systems: All systems reviewed & are unremarkable except as noted in HPI and below Constitutional: Constitutional: Denies chills and Denies fever(s) Cardiovascular: Cardiovascular: Reports no additional cardiovascular complaints, Denies chest pain and Denies leg edema Respiratory: Respiratory: Denies cough, Denies dyspnea and Denies wheezing Gastrointestinal: Gastrointestinal: Reports as per HPI and Reports no additional gastrointestinal complaints Exam Const: General: comfortable, no acute distress, alert and awake Orientation/consciousness: patient oriented x3 Resp: Effort & Inspection: normal respiratory effort Auscultation: clear to auscultation bilaterally Cardio: Rate: regular rate Rhythm: regular rhythm GI: Inspection: non-distended and incision (Dressing c/d/i) GI Palp: Yes Soft to palpation and Yes Tenderness to palpation present (GI) (incisional) Auscultation: Hypoactive bowel sounds present Neuro: General: patient oriented x3 and moves all extremities Cranial nerves: Yes CN's II-XII intact bilaterally Speech: normal speech Extrem: General: no calf tenderness and edema (trace edema swathi. arms) Psych: Mental Status: mental status grossly normal Attitude: cooperative Thought process: Normal thought process present Thought content: Yes Normal thought content present Objective Data Vital Signs Vital Signs: Vital Signs - 24 hr 06
[2019-12-31] MEDS: METOPROLOL SUCCINATE EXT REL 50 MG TABCR PO (21:32)
[2019-12-31] MEDS: ASPIRIN 325 MG ENTERIC TABLET PO (21:33)
[2019-12-31] MEDS: SIMVASTATIN 20 MG TABLET PO (21:34)
[2019-12-31] MEDS: ESCITALOPRAM OXALATE 10 MG TABLET PO (21:34)
[2019-12-31] MEDS: EZETIMIBE 10 MG TABLET PO (21:34)
[2019-12-31] MEDS: TRAZODONE HCL 50 MG TABLET PO (21:34)
[2019-12-31] MEDS: AMITRIPTYLINE HCL 25 MG TABLET PO (21:34)
[2020-01-01] VITALS (10 sets, daily range): BP systolic 148–165; BP diastolic 73–88; PULSE 72–96; RESP 16–20; TEMP 36.5–36.9; O2SAT 92–98
[2020-01-01] MEDS: IBUPROFEN IV 800 MG/200 ML 800 MG/200 ML BAG 400 MG IVPB ×3 (05:41→22:59)
[2020-01-01] MEDS: ACETAMINOPHEN 500 MG TABLET 1000 MG PO ×2 (05:41→12:52)
[2020-01-01 06:36] LABS: Hematocrit 30.1 % (42.0-52.0); Hemoglobin 9.3 g/dL (14.0-18.0); Mean Corpuscular HGB Conc 30.9 g/dl (32-36); Mean Corpuscular Hemoglobin 25.5 pg (26-34); Mean Corpuscular Volume 82.7 fl (80-100); Mean Platelet Volume 8.8 fl (7.4-10.4); Platelet Count Result 337 k/mm3 (150-375); Red Blood Count 3.64 M/mm3 (4.6-6.20); Red Cell Distribution Width 16.7 % (11.5-14.5); White Blood Count 9.7 K/mm3 (4.5-10.0)
[2020-01-01 06:47] LABS: Blood Urea Nitrogen 12 mg/dL (9-20); Calcium 8.5 mg/dL (8.4-10.2); Carbon Dioxide 29 mmol/L (22-30); Chloride 106 mmol/L (98-107); Estimated CRCL calculation 120 ml/min; Estimated Glomerular Filt Rate > 60; Glucose 91 mg/dL (75-110); Potassium 3.7 mmol/L (3.4-5.0); Sodium 136 mmol/L (137-145)
--- NOTE | 2020-01-01 08:13 | PM.PNGS ---
Progress Note: A&P Assessment and Plan (1) Colon cancer: Qualifiers: Colon location: sigmoid Qualified Code(s): C18.7 - Malignant neoplasm of sigmoid colon Code(s): C18.9 - Malignant neoplasm of colon, unspecified Status: Chronic Assessment and Plan: Patient looks good postop day 2. He is a little edematous so I will give him some Bumex. Will supplement potassium as it is starting to drift down. Advance to full liquid diet. Continue to ambulate. Follow labs and clinical exam. 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 Continue Feldman catheter (3) Atherosclerotic heart disease of [place] coronary artery without angina pectoris: Qualifiers: [place] vs. transplanted heart: [place] heart Qualified Code(s): I25.10 - Atherosclerotic heart disease of [place] coronary artery without angina pectoris Code(s): I25.10 - Atherosclerotic heart disease of [place] coronary artery without angina pectoris Status: Chronic (4) Essential (primary) hypertension: Code(s): I10 - Essential (primary) hypertension Status: Chronic (5) Current tobacco use: Code(s): Z72.0 - Tobacco use Status: Chronic Subjective Subjective Date/Time Seen: 01/01/20 08:13 Post Op day: 2 Patient reports: no new complaints, pain is less, tolerating liquids well, no flatus and no bowel movement Review of Systems Review of Systems: All systems reviewed & are unremarkable except as noted in HPI and below Constitutional: Constitutional: Denies headache(s) Cardiovascular: Cardiovascular: Denies chest pain and Denies dyspnea Respiratory: Respiratory: Denies cough and Denies dyspnea Gastrointestinal: Gastrointestinal: Reports as per HPI Psychiatric: Psychiatric: Denies confusion Exam Const: General: comfortable and no acute distress; No confusion Orientation/consciousness: patient oriented x3 and No confusion Resp: Effort & Inspection: normal respiratory effort Auscultation: clear to auscultation bilaterally Cardio: Rate: regular rate Rhythm: regular rhythm GI: Inspection: incision (Wound healing well, minimal drainage) GI Palp: Yes Soft to palpation, Yes Tenderness to palpation present (GI), No Guarding due to palpation present (GI) and No Rebound tenderness present Auscultation: normal bowel sounds Neuro: General: patient oriented x3, no focal motor deficits and No confusion Extrem: General: no calf tenderness and no edema Psych: Affect: normal affect Insight: Good insight present (Psych) Judgement: Good judgement present (Psych) Objective Data Vital Signs Vital Signs: Vital Signs - 24 hr 12/31/19 10:00 12/31/19 12:00 12/31/19 14:00 Temperature 36.7 C 36.5 C Pulse Rate 87 82 77 Respiratory Rate 18 18 Blood Pressure 132/68 134/86 Pulse Oximetry 95 98 12/31/19 16:00 12/31/19 20:00 12/31/19 21:32 Temperature Pulse Rate 81 82 72 Respiratory Rate Blood Pressure Pulse Oximetry 12/31/19 22:00 01/01/20 00:00 01/01/20 04:00 Temperature 36.3 C L Pulse Rate 86 96 72 Respiratory Rate 20 Blood Pressure 140/68 Pulse Oximetry 96 01/01/20 06:00 Temperature 36.5 C Pulse Rate 89 Respiratory Rate 20 Blood Pressure 149/73 H Pulse Oximetry 97 Intake/Output Intake/Output: Intake & Output 12/29/19 12/30/19 12/31/19 01/01/20 23:59 23:59 23:59 23:59 Intake Total 1410 5070 275 Output Total 400 1500 2800 Balance 1010 9897 -8155 Meds/Results Medications: Active Medications Generic Name Dose Route Start Last Admin Trade Name Freq PRN Reason Stop Dose Admin Acetaminophen 1,000 mg 12/30/19 18:00 01/01/20 05:41 Tylenol Tablet PO 1,000 mg Q6HR VAMSI Administration Acetaminophen 500 mg 01/01/20 08:11 Tylenol Tablet PO Q6H PRN Mild Pain (1-3) or Fever Hydrocodone Bitart/Acetaminophen 1 tab 0
[2020-01-01] MEDS: hydroCHLOROthiazide 12.5 MG CAPSULE PO (09:22)
[2020-01-01] MEDS: ALVIMOPAN 12 MG CAPSULE PO ×2 (09:23→21:27)
[2020-01-01] MEDS: ENOXAPARIN 40 MG/0.4 ML SYRINGE SUB-Q (09:23)
[2020-01-01] MEDS: FAMOTIDINE 20 MG TABLET PO ×2 (09:23→21:28)
[2020-01-01] MEDS: BUMETANIDE INJ 1 MG/4 ML VIAL IV PUSH (09:30)
[2020-01-01] MEDS: POTASSIUM CHLORIDE 10 MEQ TABLET.ER 30 MEQ PO ×2 (11:06→18:51)
[2020-01-01] MEDS: EZETIMIBE 10 MG TABLET PO (21:27)
[2020-01-01] MEDS: ASPIRIN 325 MG ENTERIC TABLET PO (21:27)
[2020-01-01] MEDS: ESCITALOPRAM OXALATE 10 MG TABLET PO (21:27)
[2020-01-01] MEDS: AMITRIPTYLINE HCL 25 MG TABLET PO (21:27)
[2020-01-01] MEDS: SIMVASTATIN 20 MG TABLET PO (21:28)
[2020-01-01] MEDS: METOPROLOL SUCCINATE EXT REL 50 MG TABCR PO (21:28)
[2020-01-01] MEDS: TRAZODONE HCL 50 MG TABLET PO (22:59)
[2020-01-02 06:00] VITALS: BP 146/80; PULSE 77; RESP 18; TEMP 36.8; O2SAT 92
[2020-01-02] MEDS: IBUPROFEN IV 800 MG/200 ML 800 MG/200 ML BAG 400 MG IVPB ×2 (06:02→11:53)
[2020-01-02 06:20] LABS: Hematocrit 29.2 % (42.0-52.0); Hemoglobin 9.2 g/dL (14.0-18.0); Mean Corpuscular HGB Conc 31.5 g/dl (32-36); Mean Corpuscular Hemoglobin 25.4 pg (26-34); Mean Corpuscular Volume 80.7 fl (80-100); Mean Platelet Volume 8.6 fl (7.4-10.4); Platelet Count Result 331 k/mm3 (150-375); Red Blood Count 3.62 M/mm3 (4.6-6.20); Red Cell Distribution Width 16.4 % (11.5-14.5); White Blood Count 7.1 K/mm3 (4.5-10.0)
[2020-01-02 06:43] LABS: Blood Urea Nitrogen 7 mg/dL (9-20); Calcium 8.3 mg/dL (8.4-10.2); Carbon Dioxide 27 mmol/L (22-30); Chloride 106 mmol/L (98-107); Estimated CRCL calculation 120 ml/min; Estimated Glomerular Filt Rate > 60; Glucose 87 mg/dL (75-110); Sodium 134 mmol/L (137-145)
[2020-01-02 06:51] LABS: Potassium 3.8 mmol/L (3.4-5.0)
[2020-01-02] MEDS: ALVIMOPAN 12 MG CAPSULE PO ×2 (08:01→20:26)
[2020-01-02] MEDS: hydroCHLOROthiazide 12.5 MG CAPSULE PO (08:01)
[2020-01-02] MEDS: ENOXAPARIN 40 MG/0.4 ML SYRINGE SUB-Q (08:01)
[2020-01-02] MEDS: BUMETANIDE INJ 1 MG/4 ML VIAL IV PUSH (08:01)
[2020-01-02] MEDS: POTASSIUM CHLORIDE 10 MEQ TABLET.ER 30 MEQ PO ×2 (08:01→16:39)
[2020-01-02] MEDS: FAMOTIDINE 20 MG TABLET PO ×2 (08:01→20:26)
[2020-01-02 09:34] VITALS: O2SAT 92
--- NOTE | 2020-01-02 12:21 | PM.PNGS ---
Progress Note: A&P Assessment and Plan (1) Cancer of sigmoid colon: Code(s): C18.7 - Malignant neoplasm of sigmoid colon Status: Chronic Assessment and Plan: Pathology shows this to be a stage IIIC sigmoid colon cancer with invasion to the urinary bladder and sigmoid colon as expected from the operative findings. [id number]. Patient doing well after sigmoidectomy with resection and repair of bladder fistula. He has done nicely and will advance to regular diet. Continue ambulation and recheck labs again tomorrow. Probably home tomorrow with dressing changes, leg bag, and analgesics. (2) Colovesical fistula: Code(s): N32.1 - Vesicointestinal fistula Status: Chronic Assessment and Plan: Bladder margins clear of tumor (3) Current tobacco use: Code(s): Z72.0 - Tobacco use Status: Chronic Assessment and Plan: Increases risk of surgical complications (4) Atherosclerotic heart disease of [place] coronary artery without angina pectoris: Qualifiers: [place] vs. transplanted heart: [place] heart Qualified Code(s): I25.10 - Atherosclerotic heart disease of [place] coronary artery without angina pectoris Code(s): I25.10 - Atherosclerotic heart disease of [place] coronary artery without angina pectoris Status: Chronic Assessment and Plan: No evidence of coronary ischemia (5) Essential (primary) hypertension: Code(s): I10 - Essential (primary) hypertension Status: Chronic Assessment and Plan: Continue home meds Subjective Subjective Date/Time Seen: 01/02/20 12:21 Post Op day: 3 Patient reports: no new complaints, feels better, pain is less, no bowel movement and afebrile Review of Systems Review of Systems: All systems reviewed & are unremarkable except as noted in HPI and below Constitutional: Constitutional: Denies headache(s) Cardiovascular: Cardiovascular: Denies chest pain and Denies dyspnea Respiratory: Respiratory: Denies cough and Denies dyspnea Gastrointestinal: Gastrointestinal: Reports as per HPI Neurologic: Denies confusion and Denies headache(s) Psychiatric: Psychiatric: Denies confusion Exam Const: General: comfortable and no acute distress; No confusion Orientation/consciousness: patient oriented x3 and No confusion Resp: Effort & Inspection: normal respiratory effort Auscultation: clear to auscultation bilaterally Cardio: Rate: regular rate Rhythm: regular rhythm GI: GI Palp: Yes Soft to palpation, Yes Tenderness to palpation present (GI), No Guarding due to palpation present (GI) and No Rebound tenderness present Auscultation: normal bowel sounds Neuro: General: patient oriented x3, no focal motor deficits and No confusion Extrem: General: no calf tenderness and edema bilateral (Less edematous) Psych: Affect: normal affect Insight: Good insight present (Psych) Judgement: Good judgement present (Psych) Objective Data Vital Signs Vital Signs: Vital Signs - 24 hr 01/01/20 14:00 01/01/20 21:28 01/01/20 22:00 Temperature 36.7 C 36.9 C Pulse Rate 90 90 90 Respiratory Rate 18 16 Blood Pressure 165/82 H 148/88 H Pulse Oximetry 97 98 01/02/20 06:00 01/02/20 09:34 Temperature 36.8 C Pulse Rate 77 Respiratory Rate 18 Blood Pressure 146/80 H Pulse Oximetry 92 92 Intake/Output Intake/Output: Intake & Output 12/30/19 12/31/19 01/01/20 01/02/20 23:59 23:59 23:59 23:59 Intake Total 1410 5070 1955 820 Output Total 400 1500 4700 1600 Balance 1010 3570 -2745 -780 Meds/Results Medications: Active Medications Generic Name Dose Route Start Last Admin Trade Name Freq PRN Reason Stop Dose Admin Acetaminophen 500 mg 01/01/20 08:11 Tylenol Tablet PO Q6H PRN Mild Pain (1-3) or Fever Hydrocodone Bitart/Acetaminophen 1 tab 01/01/20 08:11 [place] 5-325 Mg PO Q4H PRN Pain Rated 4-6 Hydrocodone Bitart/Acetaminophen 1 tab 01/01/20 08:11 01/01
--- NOTE | 2020-01-02 13:23 | WPDUROPN2 ---
Progress Note: A&P Assessment and Plan (1) Colon cancer: Qualifiers: Colon location: sigmoid Qualified Code(s): C18.7 - Malignant neoplasm of sigmoid colon Code(s): C18.9 - Malignant neoplasm of colon, unspecified Status: Chronic (2) Bladder fistula: Code(s): N32.2 - Vesical fistula, not elsewhere classified Status: Acute Time Spent With Patient Time: Patient is doing very well 3 days status post colectomy and repair of a colovesical fistula. He is tolerating his indwelling catheter without significant problem in urine remains clear. Patient is aware he will go home with an indwelling catheter until the time of follow-up cystogram. That has been scheduled for January 07 followed by an office visit in our clinic. Subjective Subjective Date/Time Seen: 01/02/20 13:23 POD #3 s/p colectomy and repair colovesiall fistula Review of Systems Cardiovascular: Cardiovascular: Denies chest pain, Denies lightheadedness, Denies palpitations and Denies dyspnea Respiratory: Respiratory: Denies dyspnea Gastrointestinal: Gastrointestinal: Denies diarrhea, Denies nausea and Denies vomiting Genitourinary: Genitourinary: Denies hematuria and Denies dysuria Endocrine: Endocrine: Denies palpitations Exam Const: General: no acute distress Resp: Effort & Inspection: normal respiratory effort GI: Inspection: non-distended GI Palp: No abdominal tenderness and No Guarding due to palpation present (GI) Auscultation: normal bowel sounds : Male General Exam: Yes normal external exam Urinary Catheter: Urinary Catheter: patent and draining Objective Data Vital Signs Vital Signs: Vital Signs - 24 hr 01/01/20 14:00 01/01/20 21:28 01/01/20 22:00 Temperature 98.1 F 98.5 F Pulse Rate 90 90 90 Respiratory Rate 18 16 Blood Pressure 165/82 H 148/88 H Pulse Oximetry 97 98 01/02/20 06:00 01/02/20 09:34 Temperature 98.2 F Pulse Rate 77 Respiratory Rate 18 Blood Pressure 146/80 H Pulse Oximetry 92 92 Intake/Output Intake/Output: Intake & Output 12/30/19 12/31/19 01/01/20 01/02/20 23:59 23:59 23:59 23:59 Intake Total 1410 5070 1955 820 Output Total 400 1500 4700 1600 Balance 1010 3570 -2745 -780 Meds/Results Medications: Active Medications Generic Name Dose Route Start Last Admin Trade Name Freq PRN Reason Stop Dose Admin Acetaminophen 500 mg 01/01/20 08:11 Tylenol Tablet PO Q6H PRN Mild Pain (1-3) or Fever Hydrocodone Bitart/Acetaminophen 1 tab 01/01/20 08:11 [place] 5-325 Mg PO Q4H PRN Pain Rated 4-6 Hydrocodone Bitart/Acetaminophen 1 tab 01/01/20 08:11 01/02/20 06:01 [place] 10-325 Mg PO 1 tab Q4H PRN Administration Pain Rated 7-10 Alvimopan 12 mg 12/31/19 12:00 01/02/20 08:01 Entereg PO 01/07/20 12:01 12 mg Q12HR VAMSI Administration Amitriptyline HCl 25 mg 12/30/19 21:00 01/01/20 21:27 Elavil PO 25 mg HS VAMSI Administration Aspirin 325 mg 12/30/19 21:00 01/01/20 21:27 Aspirin Ec PO 325 mg HS VAMSI Administration Bumetanide 1 mg 01/01/20 09:00 01/02/20 08:01 Bumex Inj IV PUSH 1 mg QAM VAMSI Administration Ezetimibe 10 mg 12/30/19 21:00 01/01/20 21:27 Zetia PO 10 mg HS VAMSI Administration Enoxaparin Sodium 40 mg 12/31/19 09:00 01/02/20 08:01 Lovenox SUB-Q 40 mg DAILY VAMSI Administration Escitalopram Oxalate 10 mg 12/30/19 21:00 01/01/20 21:27 Lexapro PO 10 mg HS VAMSI Administration Famotidine 20 mg 01/01/20 09:00 01/02/20 08:01 Pepcid PO 20 mg Q12HR VAMSI Administration Hydralazine HCl 10 mg 12/30/19 22:20 Apresoline Hcl Inj IV PUSH Q6H PRN SBP > 160 Hydrochlorothiazide 12.5 mg 12/31/19 09:00 01/02/20 08:01 Hydrochlorothiazide PO 12.5 mg DAILY VAMSI Administration Metoprolol Succinate 50 mg 12/30/19 21:00 01/01/20 21:28 Toprol Xl PO 50 mg HS VAMSI Administration Morphine Sulfate 1
[2020-01-02 14:00] VITALS: BP 147/80; PULSE 95; RESP 16; TEMP 36.9; O2SAT 98
[2020-01-02] MEDS: EZETIMIBE 10 MG TABLET PO (20:26)
[2020-01-02] MEDS: ASPIRIN 325 MG ENTERIC TABLET PO (20:26)
[2020-01-02] MEDS: TRAZODONE HCL 50 MG TABLET PO (20:26)
[2020-01-02] MEDS: AMITRIPTYLINE HCL 25 MG TABLET PO (20:26)
[2020-01-02] MEDS: ESCITALOPRAM OXALATE 10 MG TABLET PO (20:26)
[2020-01-02] MEDS: SIMVASTATIN 20 MG TABLET PO (20:26)
[2020-01-02 20:27] VITALS: PULSE 70
[2020-01-02] MEDS: METOPROLOL SUCCINATE EXT REL 50 MG TABCR PO (20:27)
[2020-01-02 20:38] VITALS: O2SAT 96
[2020-01-02 22:00] VITALS: BP 160/62; PULSE 78; RESP 16; TEMP 37.2; O2SAT 94
[2020-01-03 06:00] VITALS: BP 140/79; PULSE 78; RESP 18; TEMP 36.9; O2SAT 98
[2020-01-03 07:02] LABS: Hematocrit 33.2 % (42.0-52.0); Hemoglobin 10.5 g/dL (14.0-18.0); Mean Corpuscular HGB Conc 31.6 g/dl (32-36); Mean Corpuscular Hemoglobin 25.5 pg (26-34); Mean Corpuscular Volume 80.6 fl (80-100); Mean Platelet Volume 8.5 fl (7.4-10.4); Platelet Count Result 420 k/mm3 (150-375); Red Blood Count 4.12 M/mm3 (4.6-6.20); Red Cell Distribution Width 16.2 % (11.5-14.5); White Blood Count 10.7 K/mm3 (4.5-10.0)
[2020-01-03 07:17] LABS: Blood Urea Nitrogen 8 mg/dL (9-20); Calcium 9.1 mg/dL (8.4-10.2); Carbon Dioxide 27 mmol/L (22-30); Chloride 105 mmol/L (98-107); Estimated CRCL calculation 102 ml/min; Estimated Glomerular Filt Rate > 60; Glucose 104 mg/dL (75-110); Sodium 136 mmol/L (137-145)
[2020-01-03] MEDS: POTASSIUM CHLORIDE 10 MEQ TABLET.ER 30 MEQ PO (08:15)
[2020-01-03 08:16] VITALS: BP 159/93; PULSE 75; RESP 18; O2SAT 98
[2020-01-03] MEDS: hydroCHLOROthiazide 12.5 MG CAPSULE PO (08:16)
[2020-01-03] MEDS: ALVIMOPAN 12 MG CAPSULE PO (08:17)
[2020-01-03] MEDS: ENOXAPARIN 40 MG/0.4 ML SYRINGE SUB-Q (08:17)
[2020-01-03] MEDS: FAMOTIDINE 20 MG TABLET PO (08:17)
--- NOTE | 2020-01-03 08:43 | PM.DS ---
DS: Admitting Diagnosis Admitting Diagnosis Admitting Diagnosis: Malignant neoplasm of colon, unspecified DS: Discharge Diagnosis Discharge Diagnosis (1) Primary adenocarcinoma of descending colon: Code(s): C18.6 - Malignant neoplasm of descending colon Status: Chronic Assessment and Plan: Stage IIIC descending colon cancer with invasion into the urinary bladder as well as the sigmoid colon. One of 26 lymph nodes were positive.[id number]. Margins are clear. Small vessel lymphovascular invasion positive. Patient underwent resection on December 30, 2019. Dr. Tejada performed bladder resection and repair. Patient is doing well and is discharged today 01/03/2020 in good condition. He will have a cystogram on 01/08/[address] Tejada in the office the following day. He will see Dr. Muhammad in approximately 2 weeks. 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 See above. Bladder margins clear. (3) Iron deficiency anemia due to chronic blood loss: Code(s): D50.0 - Iron deficiency anemia secondary to blood loss (chronic) Status: Acute Assessment and Plan: H&H is 10.5 and 33.2 on discharge. He will be sent home on iron supplement. (4) Current tobacco use: Code(s): Z72.0 - Tobacco use Status: Chronic Assessment and Plan: Advised to stop smoking. (5) Atherosclerotic heart disease of [place] coronary artery without angina pectoris: Qualifiers: [place] vs. transplanted heart: [place] heart Qualified Code(s): I25.10 - Atherosclerotic heart disease of [place] coronary artery without angina pectoris Code(s): I25.10 - Atherosclerotic heart disease of [place] coronary artery without angina pectoris Status: Chronic (6) Essential (primary) hypertension: Code(s): I10 - Essential (primary) hypertension Status: Chronic DS: Summary Time Spent with Patient Time attestation: Total time spent providing and/or coordinating discharge services: Patient is a 69-year-old man with a history of coronary disease hypertension hyperlipidemia and depression who presented to the emergency room in [place] on November 10, 2019 with complaints of fecal urea. CT scan suggested colovesical fistula. Colonoscopy showed 2 tumors. One in the sigmoid colon which was smaller and a 2nd in the descending colon. The patient was treated with ciprofloxacin and discharged. He saw Dr. muhammad in the office and after thorough discussion, was prepared for surgery and then taken to surgery on 12/30/2019. Left colectomy with colorectal anastomosis was performed. Dr. Vickie fernando resected the colovesical fistula and repair the urinary bladder. Postoperatively the patient had some anemia but this was stable. His Feldman catheter was left in any will be discharged with this with plans for outpatient cystoscopy on 01/08/2020. He was comfortable on oral analgesics, eating regular diet and able to ambulate independently. He is doing well and is discharged at this time. Exam Const: General: cooperative, comfortable, no acute distress, alert and awake; No confusion Orientation/consciousness: No confusion Neck: Neck: normal visual inspection, no lymphadenopathy, trachea midline, supple, nontender and no JVD Thyroid: abnormal thyroid Resp: Effort & Inspection: normal respiratory effort Auscultation: clear to auscultation bilaterally Cardio: Rate: regular rate Rhythm: regular rhythm GI: Inspection: non-distended and incision (Midline incision healing well. Minimal drainage.) GI Palp: Yes Soft to palpation, Yes Tenderness to palpation present (GI) (Mild appropriate tenderness), No Guarding due to palpation present (GI) and No Palpable mass present Auscultation: normal bowel sounds Urinary Catheter: Urinary Catheter: patent and draining and urine clear Neuro: General: No confusion Cranial nerves: Yes Equ
[2020-01-03] MEDS: BUMETANIDE INJ 1 MG/4 ML VIAL IV PUSH (10:08)
== END 2020-01-03 11:45 | disposition home or self-care (01) | DRG 330 ==
LOC: ANH3MEDSUR 15:46
PROVIDERS: Urology; Admitting Provider Surgery; PCP Family Medicine; Visit Provider Surgery
PROC: 0DTG0ZZ Resection of Left Large Intestine, Open Approach (ICD-10-PCS; CPT 44143; principal; 2019-12-30 07:30)
PROC: 0TBB8ZZ Excision of Bladder, Via Natural or Artificial Opening Endoscopic (ICD-10-PCS; 2019-12-30 07:30)
DX: C18.6 Malignant neoplasm of descending colon (principal); N32.1 Vesicointestinal fistula; D50.0 Iron deficiency anemia secondary to blood loss (chronic); I25.10 Atherosclerotic heart disease of native coronary artery without angina pectoris; I10 Essential (primary) hypertension; E78.5 Hyperlipidemia, unspecified; F32.9 Major depressive disorder, single episode, unspecified; E55.9 Vitamin D deficiency, unspecified; F17.210 Nicotine dependence, cigarettes, uncomplicated; Z95.1 Presence of aortocoronary bypass graft; M47.816 Spondylosis without myelopathy or radiculopathy, lumbar region
CPT/HCPCS: 36415; 80048; 85025; 85027; 87635; 88309; A9270; C1729; C1758; C1769; C9803; J0131; J0360; J0690; J1100; J1170; J1650; J1741; J2270; J2405; J2704; J2710; J3010; J7030; J7120; U0003

== ENCOUNTER 2020-01-08 08:20 | Outpatient (CLI) | payer MEDICARE, SELFPAY ==
--- NOTE | ~2020-01-08 | XR_ITS ---
EXAMINATION: CYSTOGRAM DATE: 01/08/2020 09:11 INDICATION: Bladder cancer follow-up TECHNIQUE: Initial hockey scout radiograph of the pelvis was performed. There was retrograde administration of Omnipaque 350 mixed with saline contrast into patient's existing olivera catheter. 27 fluoroscopic images of the pelvis were obtained. A post-void image was also performed. Fluoroscopy exposure time w as 0.9 minutes. FINDINGS: There is an irregular but smooth mucosal contour to the bladder consistent with history of recent olena dder repair for colovesical fistula. No evident extravasation to suggest leak or residual fistula. Bi lateral vesicoureteral reflux was observed to the level of the mid ureters with ureteral contrast stacie ining spontaneously with drainage of the bladder. IMPRESSION: 1. No evident residual bladder leaks/fistula post recent repair. 2. Bilateral vesicoureteral reflux. Reviewed, dictated and finalized at location A.
== END 2020-01-08 08:21 | disposition home or self-care (01) ==
PROVIDERS: PCP Family Medicine; Visit Provider Urology
DX: N32.1 Vesicointestinal fistula (principal)
CPT/HCPCS: 51600; 74430; Q9967

== ENCOUNTER 2020-03-30 13:59 | Outpatient (CLI) | payer MEDICARE, SELFPAY ==
[2020-03-30 14:14] LABS: Basophils Absolute Auto 0.1 K/mm3 (0.0-0.1); Basophils Percent Auto 0.7 % (0.2-1.2); Eosinophils Absolute Auto 0.3 K/mm3 (0-0.3); Eosinophils Percent Auto 2.9 % (0-4.4); Hematocrit 43.7 % (42.0-52.0); Hemoglobin 13.8 g/dL (14.0-18.0); Immature Granulocyte Absolute 0.02 K/mm3 (0.00-0.031); Immature Granulocyte Percent A 0.2 % (0-0.5); Lymphocytes Absolute Auto 4.09 K/mm3 (0.9-3.2); Lymphocytes Percent Auto 47.1 % (18.3-44.2); Mean Corpuscular HGB Conc 31.6 g/dl (32-36); Mean Corpuscular Hemoglobin 25.9 pg (26-34); Mean Platelet Volume 8.7 fl (7.4-10.4); Monocytes Absolute Auto 0.7 K/mm3 (0.1-0.6); Monocytes Percent Auto 8.3 % (2.6-8.5); Neutrophils Absolute Auto 3.5 K/mm3 (1.3-6.7); Neutrophils Percent Auto 40.8 % (45.5-73.1); Platelet Count Result 304 k/mm3 (150-375); Red Blood Count 5.33 M/mm3 (4.6-6.20); Red Cell Distribution Width 16.5 % (11.5-14.5); White Blood Count 8.7 K/mm3 (4.5-10.0)
[2020-03-30 16:45] LABS: Alanine Aminotransferase 17 U/L (4-50); Albumin Level 4.2 g/dL (3.5-5.1); Alkaline Phosphatase 103 U/L (38-126); Anion Gap 8 mmol/L (8-16); Aspartate Amino Transferase 25 U/L (17-59); Bilirubin,Total 0.3 mg/dL (0.2-1.3); Blood Urea Nitrogen 15 mg/dL (9-20); Calcium 9.1 mg/dL (8.4-10.2); Carbon Dioxide 27 mmol/L (22-30); Chloride 101 mmol/L (98-107); Estimated Glomerular Filt Rate > 60; Glucose 90 mg/dL (75-110); Potassium 4.3 mmol/L (3.4-5.0); Sodium 136 mmol/L (137-145)
[2020-03-30 17:14] LABS: Carcinoembryonic Antigen 0.9 ng/mL (0.0-3.0)
== END 2020-03-30 14:00 | disposition home or self-care (01) ==
PROVIDERS: PCP Family Medicine; Visit Provider Internal Medicine Hematology & Oncology
DX: C18.9 Malignant neoplasm of colon, unspecified (principal)
CPT/HCPCS: 36415; 80053; 82378; 85025

== ENCOUNTER 2020-04-05 09:51 | Outpatient (CLI) | payer MEDICARE, SELFPAY ==
--- NOTE | ~2020-04-05 | CT_ITS ---
EXAMINATION: CT chest w con DATE: 04/05/2020 10:23 INDICATION: Follow-up cancer. TECHNIQUE: Computed tomography (CT) of the chest was performed without intravenous contrast. The dose -length product was 390.88 mGy-cm. Automated exposure control and iterative reconstruction technique were employed. COMPARISON: CT dated 04/23/2019 FINDINGS: No thoracic lymphadenopathy. No significant pleural or pericardial effusion. Heart size is normal. There is atherosclerosis of the aorta and coronary arteries. Status post median sternotomy fo r CABG. There is emphysema. There is apical pleural parenchymal scarring. There are small calcified n odules in the left lung, consistent with chronic granulomatous disease. No focal airspace consolidati on. No pneumothorax. Mild thoracic spondylosis. IMPRESSION: 1. No acute cardiopulmonary disease. Reviewed, dictated and finalized at location A.
[2020-04-05 11:11] LABS: Basophils Percent Auto 0.5 % (0.2-1.2); Eosinophils Absolute Auto 0.2 K/mm3 (0-0.3); Eosinophils Percent Auto 2.3 % (0-4.4); Hematocrit 43.2 % (42.0-52.0); Hemoglobin 13.9 g/dL (14.0-18.0); Immature Granulocyte Absolute 0.02 K/mm3 (0.00-0.031); Immature Granulocyte Percent A 0.3 % (0-0.5); Lymphocytes Absolute Auto 2.85 K/mm3 (0.9-3.2); Lymphocytes Percent Auto 35.8 % (18.3-44.2); Mean Corpuscular HGB Conc 32.2 g/dl (32-36); Mean Corpuscular Hemoglobin 26.1 pg (26-34); Mean Corpuscular Volume 81.2 fl (80-100); Mean Platelet Volume 8.8 fl (7.4-10.4); Monocytes Absolute Auto 0.5 K/mm3 (0.1-0.6); Monocytes Percent Auto 6.2 % (2.6-8.5); Neutrophils Absolute Auto 4.4 K/mm3 (1.3-6.7); Neutrophils Percent Auto 54.9 % (45.5-73.1); Platelet Count Result 278 k/mm3 (150-375); Red Blood Count 5.32 M/mm3 (4.6-6.20); Red Cell Distribution Width 16.8 % (11.5-14.5)
[2020-04-05 12:43] LABS: Alanine Aminotransferase 17 U/L (4-50); Albumin Level 4.2 g/dL (3.5-5.1); Alkaline Phosphatase 108 U/L (38-126); Anion Gap 8 mmol/L (8-16); Aspartate Amino Transferase 24 U/L (17-59); Bilirubin,Total 0.3 mg/dL (0.2-1.3); Blood Urea Nitrogen 14 mg/dL (9-20); Calcium 9.8 mg/dL (8.4-10.2); Carbon Dioxide 25 mmol/L (22-30); Chloride 102 mmol/L (98-107); Estimated Glomerular Filt Rate > 60; Glucose 111 mg/dL (75-110); Potassium 4.5 mmol/L (3.4-5.0); Sodium 135 mmol/L (137-145)
== END 2020-04-05 09:52 | disposition home or self-care (01) ==
PROVIDERS: PCP Family Medicine; Visit Provider Internal Medicine Hematology & Oncology
DX: C18.9 Malignant neoplasm of colon, unspecified (principal)
CPT/HCPCS: 36415; 71260; 80053; 82378; 85025; Q9967

== ENCOUNTER 2020-06-01 13:12 | Outpatient (CLI) | payer MEDICARE, SELFPAY ==
[2020-06-01 13:26] LABS: Basophils Percent Auto 0.5 % (0.2-1.2); Eosinophils Absolute Auto 0.3 K/mm3 (0-0.3); Eosinophils Percent Auto 3.9 % (0-4.4); Hematocrit 40.9 % (42.0-52.0); Hemoglobin 13.7 g/dL (14.0-18.0); Immature Granulocyte Absolute 0.01 K/mm3 (0.00-0.031); Immature Granulocyte Percent A 0.1 % (0-0.5); Lymphocytes Absolute Auto 3.65 K/mm3 (0.9-3.2); Lymphocytes Percent Auto 48.7 % (18.3-44.2); Mean Corpuscular HGB Conc 33.5 g/dl (32-36); Mean Corpuscular Hemoglobin 28.7 pg (26-34); Mean Corpuscular Volume 85.7 fl (80-100); Mean Platelet Volume 8.2 fl (7.4-10.4); Monocytes Absolute Auto 0.8 K/mm3 (0.1-0.6); Monocytes Percent Auto 10.1 % (2.6-8.5); Neutrophils Absolute Auto 2.7 K/mm3 (1.3-6.7); Neutrophils Percent Auto 36.7 % (45.5-73.1); Platelet Count Result 219 k/mm3 (150-375); Red Blood Count 4.77 M/mm3 (4.6-6.20); Red Cell Distribution Width 21.2 % (11.5-14.5); White Blood Count 7.5 K/mm3 (4.5-10.0)
[2020-06-01 13:30] LABS: Blood Urea Nitrogen 18 mg/dL (8-26); Carbon Dioxide 26 mmol/L (22-30); Chloride 100 mmol/L (98-109); Estimated Glomerular Filt Rate > 60; Glucose 97 mg/dL (70-105); Potassium 4.1 mmol/L (3.5-4.9); Sodium 137 mmol/L (138-146)
[2020-06-01 15:18] LABS: Alanine Aminotransferase 22 U/L (4-50); Alkaline Phosphatase 91 U/L (38-126); Anion Gap 9 mmol/L (8-16); Aspartate Amino Transferase 34 U/L (17-59); Bilirubin,Total 0.9 mg/dL (0.2-1.3); Blood Urea Nitrogen 17 mg/dL (9-20); Calcium 9.5 mg/dL (8.4-10.2); Carbon Dioxide 26 mmol/L (22-30); Chloride 100 mmol/L (98-107); Estimated Glomerular Filt Rate > 60; Glucose 101 mg/dL (75-110); Potassium 4.3 mmol/L (3.4-5.0); Sodium 135 mmol/L (137-145)
== END 2020-06-01 13:13 | disposition home or self-care (01) ==
LOC: ANHLAB 13:14
PROVIDERS: PCP Family Medicine; Visit Provider Internal Medicine Hematology & Oncology
DX: C18.9 Malignant neoplasm of colon, unspecified (principal)
CPT/HCPCS: 36415; 80048; 80053; 85025

== ENCOUNTER 2020-07-15 12:30 | Outpatient (CLI) | payer MEDICARE, SELFPAY ==
[2020-07-15 12:49] LABS: Basophils Percent Auto 0.6 % (0.2-1.2); Eosinophils Absolute Auto 0.2 K/mm3 (0-0.3); Eosinophils Percent Auto 3.8 % (0-4.4); Hematocrit 44.6 % (42.0-52.0); Hemoglobin 15.1 g/dL (14.0-18.0); Immature Granulocyte Absolute 0.01 K/mm3 (0.00-0.031); Immature Granulocyte Percent A 0.2 % (0-0.5); Lymphocytes Absolute Auto 2.78 K/mm3 (0.9-3.2); Lymphocytes Percent Auto 43.4 % (18.3-44.2); Mean Corpuscular HGB Conc 33.9 g/dl (32-36); Mean Corpuscular Hemoglobin 32.2 pg (26-34); Mean Corpuscular Volume 95.1 fl (80-100); Mean Platelet Volume 8.7 fl (7.4-10.4); Monocytes Absolute Auto 0.6 K/mm3 (0.1-0.6); Neutrophils Absolute Auto 2.7 K/mm3 (1.3-6.7); Platelet Count Result 190 k/mm3 (150-375); Red Blood Count 4.69 M/mm3 (4.6-6.20); Red Cell Distribution Width 19.4 % (11.5-14.5); White Blood Count 6.4 K/mm3 (4.5-10.0)
[2020-07-15 12:54] LABS: Blood Urea Nitrogen 15 mg/dL (8-26); Carbon Dioxide 27 mmol/L (22-30); Chloride 101 mmol/L (98-109); Estimated Glomerular Filt Rate > 60; Glucose 100 mg/dL (70-105); Potassium 4.3 mmol/L (3.5-4.9); Sodium 138 mmol/L (138-146)
[2020-07-15 13:35] LABS: Alanine Aminotransferase 20 U/L (4-50); Albumin Level 3.9 g/dL (3.5-5.1); Alkaline Phosphatase 105 U/L (38-126); Anion Gap 6 mmol/L (8-16); Aspartate Amino Transferase 30 U/L (17-59); Bilirubin,Total 0.6 mg/dL (0.2-1.3); Blood Urea Nitrogen 16 mg/dL (9-20); Calcium 9.3 mg/dL (8.4-10.2); Carbon Dioxide 28 mmol/L (22-30); Chloride 102 mmol/L (98-107); Estimated Glomerular Filt Rate > 60; Glucose 102 mg/dL (75-110); Potassium 4.5 mmol/L (3.4-5.0); Sodium 136 mmol/L (137-145)
== END 2020-07-15 12:31 | disposition home or self-care (01) ==
PROVIDERS: PCP Family Medicine; Visit Provider Internal Medicine Hematology & Oncology
DX: C18.9 Malignant neoplasm of colon, unspecified (principal)
CPT/HCPCS: 36415; 80048; 80053; 85025

== ENCOUNTER 2020-08-06 00:29 | Outpatient (CLI) | payer MEDICARE, SELFPAY ==
[2020-08-06 17:38] LABS: SARS-CoV-2 RNA PCR Negative
== END 2020-08-06 00:30 | disposition home or self-care (01) ==
LOC: ANHCOVIDDT 00:29
PROVIDERS: PCP Family Medicine; Visit Provider Internal Medicine Gastroenterology
DX: Z01.812 Encounter for preprocedural laboratory examination (principal); Z20.822 Contact with and (suspected) exposure to COVID-19
CPT/HCPCS: C9803; U0003; U0005

== ENCOUNTER 2020-08-09 01:32 | Day surgery (SDC) | payer MEDICARE, SELFPAY ==
[2020-07-28 11:19] VITALS: BMI 33.5
--- NOTE | 2020-07-28 12:01 | PC.NURSE ---
PT BECOMES VERY CONFUSED AND DISORIENTED WITH ANESTHESIA-VERY DIFFICULT TO WAKE UP AND REORIENT UNLESS IS WITH PATIENT. OKAYED FOR PATIENT TO HAVE STAY WITH HIM
--- NOTE | 2020-08-04 13:40 | PM.HPGS ---
History of Present Illness History of Present Illness Consent: Risks, benefits, and alternatives have been discussed and questions answered. Patient agrees to proceed with procedure. Chief complaint: Malignant Neoplasm Of Descending Colon Narrative: Main Alfonso is a 69 year old male who has been evalluated in our office for irritable voiding symptoms. He presents today for colonoscopy and we will be available to evaluate his bladder via cystoscopy. Review of Systems Cardiovascular: Cardiovascular: Denies chest pain, Denies lightheadedness, Denies palpitations and Denies dyspnea Respiratory: Respiratory: Denies dyspnea Gastrointestinal: Gastrointestinal: Denies diarrhea, Denies nausea and Denies vomiting Genitourinary: Genitourinary: Denies hematuria, Reports dysuria, Reports urinary frequency and Reports urinary urgency Endocrine: Endocrine: Denies palpitations PMFSH Past Medical History Medical History Atherosclerotic heart disease of [place] coronary artery without angina pectoris >4 METs Chronic, continuous use of opioids hydrocodone x 13 years Colovesical fistula Current tobacco use Decreased libido Degenerative joint disease (DJD) of lumbar spine Essential (primary) hypertension Major depressive disorder, single episode, unspecified Mixed hyperlipidemia Pneumaturia Seasonal allergies Vitamin D deficiency, unspecified Surgical History Surgical History History of colectomy with repair coloresical fishula Hx of CABG 6 vessel CABG S/P CABG x 6 Family History Family History Mother Hypertension Heart disease Other Family history of coronary artery disease Family history of malignant neoplasm Social History Social History Social History: The patient lives with his who is a durable power dental technician apprentice for healthcare. The patient desires to be a full code. 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 Ale is his 's name. Patient currently smokes at least a pack cigarettes a day. He has smoked since the age of 12. No illicit drugs marijuana nor alcohol Smoking packs per day: 1 Smoking cigarettes per day: 20.0 Years smoked: 60 Smoking pack-years: 60.00 Smoking status: Current every day smoker Tobacco type: cigarettes Second hand tobacco smoke exposure: No Alcohol intake: never Substance use: never Substance use type: does not use Gender identity (if verbalized by the patient): Male Spiritual care concerns: No Agree to blood products: Yes Meds Home Medications and Allergies Home Medications Medication Instructions Recorded Confirmed Type aspirin 325 mg tablet,delayed 325 mg PO HS #90 tablet 07/01/20 07/28/20 Rx release cholecalciferol (vitamin D3) 125 125 mcg PO HS #90 tablet 07/01/20 07/28/20 Rx mcg (5,000 unit) tablet hydrochlorothiazide 12.5 mg capsule 12.5 mg PO DAILY #90 cap 07/01/20 07/28/20 Rx hydrocodone 10 mg-acetaminophen 1 tablet PO Q6H PRN #90 tablet 07/01/20 07/28/20 Rx 325 mg tablet metoprolol succinate 50 mg 50 mg PO HS #90 tablet 07/01/20 07/28/20 Rx tablet,extended release 24 hr amitriptyline 25 mg PO HS 07/28/20 07/28/20 History docusate sodium [Colace] 100 mg PO DAILY 07/28/20 07/28/20 History escitalopram oxalate 20 mg PO HS 07/28/20 07/28/20 History ezetimibe 10 mg PO HS 07/28/20 07/28/20 History omega-3 fatty acids [Fish Oil] 2,000 mg PO DAILY 07/28/20 07/28/20 History simvastatin 20 mg PO HS 07/28/20 07/28/20 History sodium,potassium,mag sulfates See Rx Instructions .ROUTE 07/28/20 Rx [Suprep Bowel Prep Kit] .COMPLEX #1 ml tamsulosin 0.4 mg PO HS 07/28/20 07/28/20 History Allergies Allergy/AdvReac Type Severity Reaction Status Date / Suresh
[2020-08-09 06:28] VITALS: BP 163/87; PULSE 82; RESP 19; TEMP 36.3; O2SAT 94; BMI 34.0
[2020-08-09] MEDS: LACTATED RINGERS 1,000 ML 150 ML IV CONT (06:40)
--- NOTE | 2020-08-09 07:23 | WPDHPUPDATE1 ---
History and Physical Update Update Date/Time: 08/09/20 07:23 History and Physical has been reviewed, including an updated exam of the patient. There are NO changes in the patient's condition. Risks, benefits, and alternatives have been discussed and questions answered. Patient agrees to proceed with procedure.
[2020-08-09] MEDS: LIDOCAINE HCL 2% GEL UROJET 10 ML PKG MUCOUS MEM (07:42)
--- NOTE | 2020-08-09 07:46 | PM.PROC ---
Procedure Note - Detailed Date of procedure: 08/09/20 Pre-op diagnosis: Malignant Neoplasm Of Descending Colon Post-op diagnosis: other (BPH) Procedure performed: Flexible cystoscopy Description of procedure: Patient is in the endoscopy suite where he has prepped and draped in routine sterile fashion while in a supine position. 2% lidocaine jelly was introduced intraurethrally and systemic sedation is administered per the anesthesia department. Flexible cystoscopy is undertaken with a 16 F flexible cystoscope. He has no urethral stricture notable lateral lobe hyperplasia of the prostate. His prostatic urethra is estimated at 2.5 cm. There is minimal median lobe enlargement. The bladder appears to not empty well and the urine is cloudy. Mucosa shows diffuse hyperemia consistent with ongoing cystitis. There is no intravesical foreign body or neoplasm. A single orthotopic ureteral orifice. Urine was collected for culture and the cystoscope was removed. I will increase his Flomax to b.i.d. and add finasteride. I will also empirically start Cipro obtaining a culture result. Anesthesia: MAC Surgeon: Max Tejada MD Estimated blood loss (mL): 0 Drains: No Packing: No Pathology: yes (Urine culture) Complications: No immediate complications Condition: stable Disposition: PACU
--- NOTE | 2020-08-09 07:55 | PM.HPGS ---
History of Present Illness History of Present Illness Consent: Risks, benefits, and alternatives have been discussed and questions answered. Patient agrees to proceed with procedure. Chief complaint: Malignant Neoplasm Of Descending Colon Narrative: Main Alfonso is a 69 year old male with colon cancer T4bN1 stage IIIC complicated by colovesical fistula s/p left sided colectomy and chemotherapy, here to reassess. Review of Systems Constitutional: Constitutional: Denies headache(s) and Denies weakness Eyes: Eyes: Denies blurry vision ENT: Reports Normal hearing present, Denies headache(s) and Denies neck pain Cardiovascular: Cardiovascular: Denies chest pain and Denies dyspnea Respiratory: Respiratory: Denies dyspnea Gastrointestinal: Gastrointestinal: Reports no additional gastrointestinal complaints Genitourinary: Genitourinary: Denies dysuria Musculoskeletal: Musculoskeletal: Denies neck pain Integumentary/Breasts: Skin/Breast: Denies dry skin Neurologic: Reports Normal hearing present, Denies headache(s) and Denies weakness Psychiatric: Psychiatric: Denies anxiety Endocrine: Endocrine: Denies change in body appearance Hematologic/Lymphatic: Hematologic/Lymphatic: Denies easy bleeding Allergic/Immunologic: Allergic/Immunologic: Denies urticaria PMFSH Past Medical History Medical History Atherosclerotic heart disease of [place] coronary artery without angina pectoris >4 METs Chronic, continuous use of opioids hydrocodone x 13 years Colovesical fistula Current tobacco use Decreased libido Degenerative joint disease (DJD) of lumbar spine Essential (primary) hypertension Major depressive disorder, single episode, unspecified Mixed hyperlipidemia Pneumaturia Seasonal allergies Vitamin D deficiency, unspecified Surgical History Surgical History History of colectomy with repair coloresical fishula Hx of CABG 6 vessel CABG S/P CABG x 6 Family History Family History Mother Hypertension Heart disease Other Family history of coronary artery disease Family history of malignant neoplasm Social History Social History Social History: The patient lives with his who is a durable power employment law attorney for healthcare. The patient desires to be a full code. 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 Ale is his 's name. Patient currently smokes at least a pack cigarettes a day. He has smoked since the age of 12. No illicit drugs marijuana nor alcohol Smoking packs per day: 1 Smoking cigarettes per day: 20.0 Years smoked: 60 Smoking pack-years: 60.00 Smoking status: Current every day smoker Tobacco type: cigarettes Second hand tobacco smoke exposure: No Alcohol intake: never Substance use: never Substance use type: does not use Living arrangements: with family Gender identity (if verbalized by the patient): Male Spiritual care concerns: No Agree to blood products: Yes Meds Home Medications and Allergies Home Medications Medication Instructions Recorded Confirmed Type aspirin 325 mg tablet,delayed 325 mg PO HS #90 tablet 07/01/20 07/28/20 Rx release cholecalciferol (vitamin D3) 125 125 mcg PO HS #90 tablet 07/01/20 07/28/20 Rx mcg (5,000 unit) tablet hydrochlorothiazide 12.5 mg capsule 12.5 mg PO DAILY #90 cap 07/01/20 07/28/20 Rx hydrocodone 10 mg-acetaminophen 1 tablet PO Q6H PRN #90 tablet 07/01/20 07/28/20 Rx 325 mg tablet metoprolol succinate 50 mg 50 mg PO HS #90 tablet 07/01/20 07/28/20 Rx tablet,extended release 24 hr amitriptyline 25 mg PO HS 07/28/20 07/28/20 History docusate sodium [Colace] 100 mg PO DAILY 07/28/20 07/28/20 History escitalopram oxalate 2
[2020-08-09 08:06] VITALS: BP 108/76; PULSE 86; RESP 22; O2SAT 92
[2020-08-09 08:09] VITALS: BP 128/83; PULSE 79; RESP 18; O2SAT 95
[2020-08-09 08:20] VITALS: BP 147/95; PULSE 78; RESP 21; O2SAT 96
--- NOTE | 2020-08-09 08:21 | SUR.PHASEII ---
0800 ORAL AIRWAY IN, PATIENT SEDATED. 0805 ORAL AIRWAY REMOVED BY VICKY PÉREZ TREE SURGEON HELPER, PATIENT MORE AWAKE STILL DROWSY.
== END 2020-08-09 08:39 | disposition home or self-care (01) ==
PROVIDERS: Urology; PCP Family Medicine; Visit Provider Internal Medicine Gastroenterology
PROC: 0DJD8ZZ Inspection of Lower Intestinal Tract, Via Natural or Artificial Opening Endoscopic (ICD-10-PCS; CPT 45378; principal; 2020-08-09 07:30)
PROC: 0TJB8ZZ Inspection of Bladder, Via Natural or Artificial Opening Endoscopic (ICD-10-PCS; CPT 52000; 2020-08-09 07:30)
DX: Z08 Encounter for follow-up examination after completed treatment for malignant neoplasm (principal); R35.0 Frequency of micturition; N40.0 Benign prostatic hyperplasia without lower urinary tract symptoms; N32.89 Other specified disorders of bladder; D12.2 Benign neoplasm of ascending colon; D12.4 Benign neoplasm of descending colon; K57.30 Diverticulosis of large intestine without perforation or abscess without bleeding; K64.8 Other hemorrhoids; Z85.038 Personal history of other malignant neoplasm of large intestine; Z90.49 Acquired absence of other specified parts of digestive tract; Z98.0 Intestinal bypass and anastomosis status; I25.10 Atherosclerotic heart disease of native coronary artery without angina pectoris; I10 Essential (primary) hypertension; E78.2 Mixed hyperlipidemia; E55.9 Vitamin D deficiency, unspecified; F32.9 Major depressive disorder, single episode, unspecified; F17.210 Nicotine dependence, cigarettes, uncomplicated; Z79.891 Long term (current) use of opiate analgesic; Z95.1 Presence of aortocoronary bypass graft; Z79.82 Long term (current) use of aspirin; Z92.21 Personal history of antineoplastic chemotherapy
CPT/HCPCS: 52000; 45385; 87086; 88305; J2704; J7120

== ENCOUNTER 2020-10-27 08:34 | Outpatient (CLI) | payer MEDICARE, SELFPAY ==
[2020-10-27 08:49] LABS: Basophils Absolute Auto 0.1 K/mm3 (0.0-0.1); Basophils Percent Auto 0.7 % (0.2-1.2); Eosinophils Absolute Auto 0.2 K/mm3 (0-0.3); Eosinophils Percent Auto 3.2 % (0-4.4); Hematocrit 46.5 % (42.0-52.0); Hemoglobin 15.8 g/dL (14.0-18.0); Immature Granulocyte Absolute 0.01 K/mm3 (0.00-0.031); Immature Granulocyte Percent A 0.1 % (0-0.5); Lymphocytes Absolute Auto 2.92 K/mm3 (0.9-3.2); Lymphocytes Percent Auto 38.8 % (18.3-44.2); Mean Corpuscular Hemoglobin 30.6 pg (26-34); Mean Corpuscular Volume 89.9 fl (80-100); Mean Platelet Volume 8.8 fl (7.4-10.4); Monocytes Absolute Auto 0.6 K/mm3 (0.1-0.6); Monocytes Percent Auto 7.6 % (2.6-8.5); Neutrophils Absolute Auto 3.7 K/mm3 (1.3-6.7); Neutrophils Percent Auto 49.6 % (45.5-73.1); Platelet Count Result 243 k/mm3 (150-375); Red Blood Count 5.17 M/mm3 (4.6-6.20); Red Cell Distribution Width 12.3 % (11.5-14.5); White Blood Count 7.5 K/mm3 (4.5-10.0)
[2020-10-27 10:59] LABS: Blood Urea Nitrogen 14 mg/dL (8-26); Carbon Dioxide 25 mmol/L (22-30); Chloride 103 mmol/L (98-109); Estimated Glomerular Filt Rate > 60; Glucose 117 mg/dL (70-105); Potassium 4.4 mmol/L (3.5-4.9); Sodium 138 mmol/L (138-146)
[2020-10-27 12:21] LABS: Alanine Aminotransferase 16 U/L (4-50); Albumin Level 4.2 g/dL (3.5-5.1); Alkaline Phosphatase 91 U/L (38-126); Anion Gap 7 mmol/L (8-16); Aspartate Amino Transferase 29 U/L (17-59); Bilirubin,Total 0.4 mg/dL (0.2-1.3); Blood Urea Nitrogen 15 mg/dL (9-20); Calcium 9.5 mg/dL (8.4-10.2); Carbon Dioxide 24 mmol/L (22-30); Chloride 106 mmol/L (98-107); Estimated Glomerular Filt Rate > 60; Glucose 119 mg/dL (75-110); Potassium 4.5 mmol/L (3.4-5.0); Sodium 137 mmol/L (137-145)
[2020-10-27 12:49] LABS: Carcinoembryonic Antigen 1.1 ng/mL (0.0-3.0)
== END 2020-10-27 08:35 | disposition home or self-care (01) ==
LOC: ANHLAB 08:37
PROVIDERS: PCP Family Medicine; Visit Provider Internal Medicine Hematology & Oncology
DX: C18.6 Malignant neoplasm of descending colon (principal)
CPT/HCPCS: 36415; 80048; 80053; 82378; 85025

== ENCOUNTER 2021-02-07 07:12 | Outpatient (CLI) | payer MEDICARE, SELFPAY ==
--- NOTE | ~2021-02-07 | CT_ITS ---
EXAMINATION: CT abdomen pelvis w con EXAM DATE: 02/07/2021 07:43 INDICATION: Malignant neoplasm of colon, unspec. TECHNIQUE: Spiral CT of the abdomen and pelvis was performed following intravenous injection of 100 m L Omnipaque 350. Axial, coronal and sagittal images of the abdomen and pelvis were reviewed. The do se-length product (DLP) for this examination was 1178.88 mGy-cm. The exposure was tailored according to patient size (auto mA exposure control), and iterative reconstruction (ASIR) was used as addition al dose reduction technique. Comparison is made to prior examination from 11/10/2019. FINDINGS: The liver, spleen, adrenal glands and pancreas are unremarkable. Gallbladder is unremarkab le. No biliary obstruction. Portal and splenic veins are patent. Kidneys enhance symmetrically. T here is no hydronephrosis. Small umbilical fat-containing hernia. There is moderate prostatomegaly. Bladder has enhancing mucosa which could indicate acute or chronic cystitis. The left anterior aspect of the wall is quite thin, other portions mildly thickened. Patien t did have colovesicular fistula on prior CT in 2019. There is no retroperitoneal or pelvic lymphade nopathy. There is moderate scattered arteriosclerotic disease. Mild ectasia of the right common katarzyna ac artery up to 2.0 cm. Previously seen sigmoid colonic mass like region no longer identified. The appendix is normal. The s tomach and small bowel are unremarkable. There is expected amount of colonic stool. No free intrap eritoneal gas. The heart is normal in size. There are no pericardial or pleural effusions. The marco ng bases are unremarkable. There are no osteoblastic or osteolytic lesions identified. IMPRESSION: 1. Abnormal appearing bladder, with enhancing mucosa, thin wall left anterior aspect and thick-leena d other portions, could be acute or chronic cystitis, radiation cystitis. Malignancy not excludable. 2. Resolution of previously seen sigmoid mass, colovesicular fistula. 3. Moderate prostatomegaly. No evidence of metastatic disease. Reviewed, dictated and finalized at location B. IMPRESSION: 1. Abnormal appearing bladder, with enhancing mucosa, thin wall left anterior aspect and thick-walled other portions, could be acute or chronic cystitis, rad iation cystitis. Malignancy not excludable. 2. Resolution of previously seen sigmoid mass, colovesicular fistula. 3. Moderate prostatomegaly. No evidence of metastatic disease.
[2021-02-07 07:36] LABS: Estimated Glomerular Filt Rate > 60
== END 2021-02-07 07:13 | disposition home or self-care (01) ==
PROVIDERS: PCP Family Medicine; Visit Provider Internal Medicine Hematology & Oncology
DX: C18.9 Malignant neoplasm of colon, unspecified (principal); R93.41 Abnormal radiologic findings on diagnostic imaging of renal pelvis, ureter, or bladder; N40.0 Benign prostatic hyperplasia without lower urinary tract symptoms
CPT/HCPCS: 74177; Q9967

== ENCOUNTER 2022-02-03 09:13 | Outpatient (CLI) | payer MEDICARE, SELFPAY ==
--- NOTE | ~2022-02-03 | XR_ITS ---
EXAMINATION: XR abdomen/kub 1V DATE: 02/03/2022 09:41 INDICATION: Dyspnea. TECHNIQUE: A supine view of the abdomen on 2 radiographs was obtained. COMPARISON: CT abdomen and pelvis 02/03/2022 FINDINGS: The kidneys are obscured by bowel. There is no urolithiasis. There are phleboliths in the p suma. There are no dilated loops of bowel. IMPRESSION: 1. No urolithiasis. Reviewed, dictated and finalized at location A. IMPRESSION: 1. No urolithiasis.
--- NOTE | ~2022-02-03 | CT_ITS ---
EXAMINATION: CT abdomen pelvis wo/w con DATE: 02/03/2022 10:17 INDICATION: Microscopic hematuria. Dysuria. Urinary frequency. TECHNIQUE: Computed tomography (CT) of the abdomen and pelvis was performed without and subsequently with 130 CC Omnipaque 300 intravenous contrast. Automated exposure control and iterative reconstructi on technique were employed. Exam dose: 1898.15 mGy-cm total exam DLP. COMPARISON: 02/03/2022 KUB 02/07/2021 CT abdomen pelvis FINDINGS: Minimal dependent bilateral lower lobe atelectasis, primarily on the right. Normal heart size. No pericardial or pleural effusion. The liver, gallbladder, bile ducts, spleen, pancreas and pancreatic duct are unremarkable. Normal morphology of the adrenal glands. 1.3 cm and 1.5 cm right renal cysts. No solid renal space-occupying mass lesion or urinary tract calc ulus or hydroureteronephrosis versus. There is prominent prostate enlargement. Probable postoperative change of the urinary bladder. No olena dder wall thickening or filling defect of the urinary bladder. There is prominent atherosclerotic calcification of the abdominal aorta and celiac, superior mesenter ic, renal and inferior mesenteric arteries. No abdominal aortic aneurysm. 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 Extensive calcification of the iliac and fem oral arteries. No intraperitoneal or retroperitoneal or pelvic mass lesion or adenopathy or ascites. There is a prominent amount of fecal material in the colon. No bowel obstruction or intraperitoneal f ree air. Diffuse idiopathic skeletal hyperostosis of the lower thoracic spine. Multilevel degenerative disc di sease of the lumbar spine, but likely severe at L3-4, L4-5 and L5-S1. Prominent degenerative change a t the apophyseal joints. No suspicious osteolytic or osteoblastic lesions are noted. IMPRESSION: 1.3-1.5 cm right renal cysts No urinary tract solid mass lesion, calculus or hydroureteronephrosis Prominent prostate enlargement Probable postoperative change of the urinary bladder. No bladder mass lesion or bladder wall thickeni ng is noted. Reviewed, dictated and finalized at [facility]. Reviewed, dictated and finalized at location B. IMPRESSION: 1.3-1.5 cm right renal cysts No urinary tract solid mass lesion, calculus or hydroureteronephrosis Prominent prostate enlargement Probable postoperative change of the urinary bladder. No bladder mass lesion or bladder wall thickening is noted.
[2022-02-03 09:56] LABS: Estimated Glomerular Filt Rate > 60
== END 2022-02-03 09:14 | disposition home or self-care (01) ==
PROVIDERS: PCP Family Medicine; Visit Provider Nurse Practitioner Adult Health
DX: R31.9 Hematuria, unspecified (principal); N28.1 Cyst of kidney, acquired; N40.0 Benign prostatic hyperplasia without lower urinary tract symptoms; M48.14 Ankylosing hyperostosis [Forestier], thoracic region; M47.817 Spondylosis without myelopathy or radiculopathy, lumbosacral region
CPT/HCPCS: 74018; 74178; Q9967

== ENCOUNTER 2022-02-14 10:47 | Outpatient (CLI) | payer MEDICARE, SELFPAY ==
[2022-02-14 11:39] LABS: Anion Gap 14 mmol/L (8-16); Blood Urea Nitrogen 14 mg/dL (9-20); Calcium 9.3 mg/dL (8.4-10.2); Carbon Dioxide 25 mmol/L (22-30); Chloride 100 mmol/L (98-107); Estimated Glomerular Filt Rate > 60; Glucose 105 mg/dL (65-110); Potassium 4.7 mmol/L (3.4-5.0); Sodium 139 mmol/L (137-145)
== END 2022-02-14 10:48 | disposition home or self-care (01) ==
LOC: ANHSURGERY 10:51
PROVIDERS: Anesthesiology; PCP Family Medicine; Visit Provider Urology
DX: Z01.818 Encounter for other preprocedural examination (principal); I10 Essential (primary) hypertension
CPT/HCPCS: 36415; 80048

== ENCOUNTER 2022-02-16 00:58 | Day surgery (SDC) | payer MEDICARE, SELFPAY ==
--- NOTE | 2022-02-10 09:50 | PC.NURSE ---
Report to the Outpatient Waiting Room, entrance under the green pavilion located off [facility], at time _0845 on date _02/16/22 . OR Time: _1045 . - You and your visitor will be asked a series of questions to screen for COVID 19 for your protection. - Only one visitor is allowed at this time. - The patient visitor is requested to leave or wait in car when not with patient. - A mask is required within the hospital. Patients may have clear liquids (water, carbonated beverages, clear teas, apple juice) until 3 hours prior to surgery with a maximum of 20 ounces. - No food from midnight until time of surgery - Infants may have breast milk until 4 hours before surgery, infant formula 6 hours prior to surgery. - Children will be allowed to drink immediately following surgery. If applicable, please bring a bottle or sippy cup to assist with drinking. Juice, water, soda, and popsicles are readily available. For infants on formula, please bring formula the day of surgery. Pacifiers are allowed. Take the following medications with a SIP of water the morning of surgery: ___BACTRIM Medications to discontinue per physician ___ASPIRIN PER DR PEREIRA. ALL VITAMINS AND SUPPLEMENTS 3 DAYS PRE OP Date to take last dose____02/12/22 Please no make-up, nail zimbabwean, hairspray, perfume, deodorant, or body powder the day of surgery. No jewelry (including any body piercings) or valuables the day of surgery, leave them at home. Please take a shower or bath the night before, or the morning of, surgery with an antibacterial soap. Wear comfortable, loose fitting clothing. Children are encouraged to wear pajamas. - Jewelry must be removed prior to entering the operating room. Rings and piercings that are not removed may be cut off. - The hospital will not accept responsibility for valuables. - Please leave all valuables, including medications, at home the day of surgery. If you are going home after surgery, a licensed front loader residential driver must drive you home. - NO public transportation without another adult. - We recommend that an adult stay with you for 24 hours following discharge. - We also recommend that you do not drive, make important decision, drink alcoholic beverages, or take any drugs that were not prescribed by your health care provider for at least 24 hours after your discharge time. For Pediatric surgeries, we recommend two adults accompany the child home (only one inside the building at this time). Follow any additional instructions given to you from your surgeon. If you or anyone in your household have experienced Covid symptoms in the past week, please notify your surgeon or the nurse liaison at the phone number below for possible testing. Telephone instructions given to PT'S WENCESLAO and asked if any additional questions and then verbalized understanding. Patient advised to call surgeon office or pre surgery nurse liaison [phone] if any additional questions.
[2022-02-10 09:59] VITALS: BMI 33.5
--- NOTE | 2022-02-15 10:51 | WPDANESEPPF ---
Anes - Initial Pre Proc Eval Procedure: Operation Date: 02/16/22 10:45 Proposed Procedures p Diagnostic Cystoscopy - Max Tejada MD Date/Time: 02/15/22 10:51 Surgeon: Max Tejada MD Pre Op Diagnosis: microscopic hematuria Patient Data Age: 71 Gender: M Height: 1.8 m Weight: 108.9 kg Allergies Allergy/AdvReac Type Severity Reaction Status Date / Time atorvastatin AdvReac Intermediate Dizziness Verified 02/16/22 09:10 celecoxib AdvReac Intermediate Nausea Verified 02/16/22 09:10 duloxetine AdvReac Intermediate Nausea Verified 02/16/22 09:10 rosuvastatin AdvReac Intermediate Dizziness Verified 02/16/22 09:10 Home Medications Medication Instructions Recorded Confirmed Type aspirin 325 mg tablet,delayed 325 mg PO HS #90 tabs 07/01/20 02/14/22 Rx release docusate sodium 100 mg capsule 100 mg PO DAILY 07/28/20 02/14/22 History (Colace) omega-3 fatty acids 2,000 mg PO DAILY 07/28/20 02/14/22 History metoprolol succinate 50 mg 50 mg PO HS #90 tabs 06/02/21 02/14/22 Rx tablet,extended release 24 hr escitalopram oxalate 20 mg tablet 20 mg PO HS #90 tabs 09/28/21 02/14/22 Rx hydrochlorothiazide 12.5 mg capsule 12.5 mg PO DAILY #90 caps 09/28/21 02/14/22 Rx ezetimibe 10 mg tablet 10 mg PO HS #90 tabs 11/29/21 02/14/22 Rx simvastatin 20 mg tablet 20 mg PO HS #90 tabs 11/29/21 02/14/22 Rx hydrocodone 10 mg-acetaminophen 1 tablet PO Q6H PRN pain #120 tabs 01/25/22 02/16/22 Rx 325 mg tablet cholecalciferol (vitamin D3) 125 125 mcg PO DAILY 02/10/22 02/14/22 History mcg (5,000 unit) capsule cranberry fruit concentrate 250 mg 250 mg PO DAILY 02/10/22 02/14/22 History chewable tablet (Azo Cranberry) sulfamethoxazole 800 1 tablet PO BID 02/10/22 02/14/22 History mg-trimethoprim 160 mg tablet tamsulosin 0.4 mg capsule 0.4 mg PO BID 02/10/22 02/14/22 History Patient hx anesthesia problems: none Family hx anesthesia problems: none Results Review: All pre-operative results and documents have been reviewed as part of the pre-operative evaluation. 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 BMI 34.0-34.9,adult BMI over 35 BPH w urinary obs/LUTS Chronic, continuous use of opioids hydrocodone x 13 years Colovesical fistula Current tobacco use Decreased libido Degenerative joint disease (DJD) of lumbar spine Essential (primary) hypertension Hx of colon cancer, stage IV Left shoulder pain Major depressive disorder, single episode, unspecified Mixed hyperlipidemia Pneumaturia Screening for prostate cancer Seasonal allergies Vitamin D deficiency, unspecified Surgical History Surgical History History of colectomy with repair coloresical fishula Hx of CABG 6 vessel CABG S/P CABG x 6 Family History Family History Mother Hypertension Heart disease Other Family history of coronary artery disease Family history of malignant neoplasm Social History Social History Social History: The patient lives with his who is a durable power family law attorney for healthcare. The patient desires to be a full code. 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 Ale is his 's name. Patient currently smokes at least a pack cigarettes a day. He has smoked since the age of 12. No illicit drugs marijuana nor alcohol Smoking packs per day: 1 Smoking cigarettes per day: 20.0 Years smoked: 60 Smoking pack-years: 60.00 Smoking status: Current every day smoker Tobacco type: cigarettes Second hand tobacco smoke exposure: No Alcohol intake: never Substance use: never Substance use type: does not use Living arrangements: w
--- NOTE | 2022-02-16 06:34 | WPDHPUPDATE1 ---
History and Physical Update Update Date/Time: 02/16/22 06:34 History and Physical has been reviewed, including an updated exam of the patient. There are NO changes in the patient's condition. Risks, benefits, and alternatives have been discussed and questions answered. Patient agrees to proceed with procedure.
[2022-02-16 09:24] VITALS: BP 116/74; PULSE 56; RESP 14; TEMP 36.9; O2SAT 94
[2022-02-16] MEDS: LACTATED RINGERS 1,000 ML 30 ML IV CONT (09:29)
[2022-02-16] MEDS: ceFAZolin 2 GM/D5W 50 ML 2 GM/50 ML BAG IVPB (10:09)
[2022-02-16] MEDS: LIDOCAINE HCL 2% GEL UROJET 10 ML PKG MUCOUS MEM (10:30)
[2022-02-16 10:35] VITALS: BP 145/71; PULSE 55; RESP 14; O2SAT 98
--- NOTE | 2022-02-16 10:35 | W.PM.PROC2 ---
Procedure Note - Detailed Date of Procedure 02/16/22 Pre-op Diagnosis Microscopic hematuria, dysuria and recurrent UTI's Post-op Diagnosis Same Procedure Performed Flexible cystoscopy Surgeon Max Tejada MD Description of Procedure Patient is brought to the operative suite was prepped draped in routine sterile fashion while in dorsal lithotomy position after systemic sedation is administered per the anesthesia department. Cystoscopy is undertaken with a 16 F flexible cystoscope after instilling 2% lidocaine jelly in the urethra. his patient has no urethral strictures but a very large prostate with a high median bar and significant lateral lobe hyperplasia. Bladder was trabeculated but there was no intravesical foreign body or neoplasm. He has a single orthotopic ureteral orifice with clear efflux bilaterally. For his recurrent urinary tract infections and voiding symptoms I have recommended adding finasteride to the tamsulosin which he is currently taking. Also suggest suppressive Keflex 500 mg daily for 3 months. Drains No Packing No Pathology None sent Complications No immediate complications Disposition PACU
[2022-02-16 10:55] VITALS: BP 139/77; PULSE 59; RESP 14; O2SAT 92
[2022-02-16 11:20] VITALS: BP 125/70; PULSE 57; RESP 14
== END 2022-02-16 11:33 | disposition home or self-care (01) ==
PROVIDERS: PCP Family Medicine; Visit Provider Urology
PROC: (CPT 52352; principal; 2022-02-16 10:45)
DX: N40.1 Benign prostatic hyperplasia with lower urinary tract symptoms (principal); N13.8 Other obstructive and reflux uropathy; R31.29 Other microscopic hematuria; I25.10 Atherosclerotic heart disease of native coronary artery without angina pectoris; I10 Essential (primary) hypertension; F32.A Depression, unspecified; E78.2 Mixed hyperlipidemia; E55.9 Vitamin D deficiency, unspecified; Z85.038 Personal history of other malignant neoplasm of large intestine; Z95.1 Presence of aortocoronary bypass graft; Z90.49 Acquired absence of other specified parts of digestive tract; Z79.82 Long term (current) use of aspirin; Z79.891 Long term (current) use of opiate analgesic; F17.210 Nicotine dependence, cigarettes, uncomplicated; E66.9 Obesity, unspecified; Z68.34 Body mass index [BMI] 34.0-34.9, adult
CPT/HCPCS: 52000; C1769; J0690; J2704; J3010; J7120

== ENCOUNTER 2022-08-22 09:32 | Outpatient (CLI) | payer MEDICARE, SELFPAY ==
--- NOTE | 2022-08-22 09:58 | ECHO_ITS ---
Patient Info Name: Main Alfonso Age: 71 years : 1950 Gender: Male Ht: 71 in Wt: 246 lbs BSA: 2.40 m2 HR: 63 bpm BP: 149 / 96 mmHg Heart Rhythm: Sinus Rhythm Technical Quality: Fair Exam Date: 08/22/2022 10:05 AM Exam Location: [facility] Pulmonary Patient Status: Outpatient Admit Date: 08/22/2022 Staff Ordering Physician: Tila Garrido PAC Framework Developer: Ratna Hsieh RDCS Attending Provider: Tila Garrido Referring Physician: Radhika ALBARADO; Exam Type: CA echo doppler color flow Study Info Indications R06.02 - Shortness of breath Complete two-dimensional, color flow and Doppler transthoracic echocardiogram is performed. Summary 1. Complete two-dimensional, color flow and Doppler transthoracic echocardiogram is performed. 2. Left ventricular chamber dimension is normal. 3. Left ventricular systolic function is normal, estimated at 50-55%. 4. The left ventricular diastolic function is grade I diastolic dysfunction. 5. Global longitudinal strain is abnormal at -12 %. 6. Right ventricular systolic function is normal. 7. There is moderate aortic valve calcification. 8. There is mild aortic valve stenosis with a peak velocity of 219 cm/s, mean gradient of 12 mmHg, and aortic valve area of 1.5 cm2. 9. There is mild mitral valve regurgitation. 10. There is trace tricuspid valve regurgitation. 11. There is small pericardial effusion. Left Ventricle Left ventricular chamber dimension is normal. Left ventricular systolic function is normal, estimated at 50-55%. There is no increased left ventricular wall thickness. The left ventricular diastolic function is grade I diastolic dysfunction. Global longitudinal strain is abnormal at -12 %. Right Ventricle Right ventricular chamber dimension is normal. Right ventricular systolic function is normal. Left Atria Left atrial chamber dimension is normal. Right Atria Right atrial chamber dimension is normal. Atrial Septum Intact interatrial septum visualized by color flow imaging. Aortic Valve The aortic valve is probable trileaflet. There is mild aortic valve stenosis with a peak velocity of 219 cm/s, mean gradient of 12 mmHg, and aortic valve area of 1.5 cm2. There is no aortic valve regurgitation. There is moderate aortic valve calcification. Pulmonic Valve The pulmonic valve is not well visualized. Mitral Valve The mitral valve has normal leaflets. There is mild mitral valve regurgitation. Tricuspid Valve There is trace tricuspid valve regurgitation. Pericardium/Pleural There is small pericardial effusion. Inferior Vena Cava Normal inferior vena cava with >50% collapse upon inspiration consistent with normal right atrial pressure, 3 mmHg. Aorta The aortic root size at the sinus of Valsalva is normal. Left Ventricular Outflow Tract Name Value Normal LVOT 2D LVOT Diameter 2.0 cm LVOT Doppler LVOT Peak Gradient 5 mmHg LVOT Mean Gradient 2 mmHg LVOT VTI 23 cm LVOT VTI/AV VTI Ratio 0.5 LVOT Stro
== END 2022-08-22 09:33 | disposition home or self-care (01) ==
LOC: ANHCARD 09:33
PROVIDERS: PCP Family Medicine; Visit Provider Physician Assistant Medical
DX: R06.09 Other forms of dyspnea (principal); R06.02 Shortness of breath; I08.3 Combined rheumatic disorders of mitral, aortic and tricuspid valves; I31.39 Other pericardial effusion (noninflammatory)
CPT/HCPCS: 93306

== ENCOUNTER 2023-01-23 09:37 | Outpatient (CLI) | payer MEDICARE, SELFPAY ==
--- NOTE | 2023-01-25 15:08 | WPDPFTINT ---
PFT Procedure Performed PFT Procedure Performed Plethysmography (Lung Vol) Diffusing Cap (DLCO) Flow Vol Loop Spirometry w/o Bronchodil PFT Interpretation DOS: 01/23/2023 REQUESTING: KATHY De La Vega REASON FOR TESTING: COPD PULMONARY FUNCTION TESTS Results are reliable and reproducible. Spirometry: FEV1 is 3.00 L, 95%, normal. FVC is 4.36 L, 103% predicted, normal. FEV1/FVC is 69%, normal. No bronchodilator is administered. Lung volumes: Total lung capacity 7.21 L, 100% predicted, normal. Residual volume is 2.75 L, 107% predicted, normal. RV / TLC is 38%, normal. Diffusion: DLCO is 14.1, 55%, decreased. DLCO / VA is 2.5, 67%, mildly decreased. Flow volume loop: The expiratory loop is normal. The inspiratory loop is mildly truncated in the last half, may be an artifact. IMPRESSION: Normal spirometry, lung volumes with mild decrease in the DLCO which could reflect cigarettes smoking. No prior studies for comparison. Dipti Mullen MD
== END 2023-01-23 09:38 | disposition home or self-care (01) ==
LOC: ANHPFT 09:38
PROVIDERS: PCP Family Medicine; Visit Provider Nurse Practitioner Family
DX: J44.9 Chronic obstructive pulmonary disease, unspecified (principal)
CPT/HCPCS: 94375; 94726; 94729